=== PATIENT | female | born 1940 | race Caucasian/White ===

== ENCOUNTER 2016-05-16 13:15 | Emergency (ER) | payer MEDICARE, OTHER ==
[~2016-05-16] VITALS: Ht 162.6 cm; Wt 98.2 kg
[~2016-05-16 13:15] MED LIST: ACET650T46 PO; CRES20T PO; DILT120T10 PO; GABA-502 PO; HYDR25TA4 PO; LEVO75TA4 PO; LOSA25TA21 PO; MULT-1018 PO; WARF2.5T82 PO; WARF5TAB7 PO
--- NOTE | 2016-05-16 13:18 | ED.REPORT ---
HPI-Extremity Problem Lower Date of Service May 16, 2016 ED Provider: Dayton Denson Patient is a 75 year old female on Warfarin who presents to the ED via EMS complaining of a R hip dislocation without a mechanism of injury. She was sitting down, putting lotion on her legs when she internally rotated her knee too far and felt her hip dislocate. She denies numbness, neck pain, fever, or any other symptoms. She has had similar symptoms previously and they were unable to put her hip back in place in the ED. She last ate at 0900 this morning. Nursing Notes Stated Complaint: HIP DISLOCATION Nursing Notes Reviewed: Yes Allergies: Coded Allergies: TAPE (Verified Allergy, Mild, BLISTERING, 05/16/16) amoxicillin (Verified Allergy, Unknown, 05/16/16) atorvastatin (Verified Allergy, Unknown, 05/16/16) potassium (Verified Allergy, Unknown, 05/16/16) amoxicillin trihydrate (Verified Adverse Reaction, Severe, N&V, 08/28/15) atorvastatin calcium (Verified Adverse Reaction, Severe, MYALGIA, 08/28/15) Scheduled Diltiazem (Cardizem) 120 Mg Tablet 240 MG PO HS Gabapentin (Gabapentin) 300 Mg Capsule 300 MG PO DAILY Hydrochlorothiazide (Hydrochlorothiazide) 25 Mg Tablet 25 MG PO DAILY Levothyroxine (Levothyroxine) 75 Mcg Tablet 75 MCG PO DAILY Multivitamin (Multi Vitamin Daily) 1 Each Tablet 1 EACH PO DAILY Rosuvastatin Calcium (Crestor) 20 Mg Tablet 20 MG PO DAILY Warfarin Sodium (Warfarin Sodium) 5 Mg Tablet 5 MG PO ,,,,Alexander Warfarin Sodium (Warfarin Sodium) 2.5 Mg Tablet 2.5 MG PO Mon,Fri Scheduled PRN Acetaminophen Extended Release (Tylenol Arthritis Pain Extended-Release) 650 Mg Tablet.er 1 TABLET PO BID PRN PRN For Pain Hydrocodone-Acetaminophen 5-325 mg (Hydrocodone-Acetaminophen 5-325 mg) 1 Each Tablet 1-2 TABLET PO Q4H PRN PRN For Pain Miscellaneous Medications Losartan Potassium (Losartan Potassium) 25 Mg Tablet 25 MG PO General Time Seen by MD: 13:17 Chief Complaint Hip injury right Hx Obtained From: Patient, EMS Arrived By: Ambulance Past Medical History Past Medical History Dislocation of hip Chest Pain (HX MN) Coronary Artery Diseas Edema (PEDAL) Hypertension Irregular Heartbeat Atrial Fibrillation (Chronic) Degenerative Joint Osteoarthritis Reports: Atrial fibrillation Past Surgical History Cardiac Surgery (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 Physical Exam Initial Vital Signs Vital Signs (First) Date Time Temp Pulse Resp B/P Pulse Ox O2 Delivery O2 Flow Rate FiO2 05/16/16 13:22 36.4 78 15 156/66 97 Room Air Initial VS: Reviewed General/Constitutional: Well-developed, Well-nourished Head / Eyes: Atraumatic, Normocephalic Neck: Supple, Full range of motion Respiratory: No respiratory distress Skin: Warm, Dry Neurologic: Alert, Oriented, Nonfocal Psychiatric: Mood/affect normal, Behavior normal, Normal thought content Lower Extremity / Pelvis / MS: Neurologic intact, Vascular intact R hip dislocated with internal rotation Ankle / Foot: Neurologic intact, Vascular intact Dorsalis Pedis pulses intact Interpretation & Diagnostics X-Ray Interpretation Xray Interpretation: IMPRESSION: Arthroplasty dislocation as discussed. No eklutna bone fracture found. Dictated by: Sam Carrillo M.D. on 05/16/2016 at 13:52 Approved by: Sam Carrillo M.D. on 05/16/2016 at 13:53 Study Performed: PELVIS W/LAT HIP (RT) X-Ray Ordered: Pelvis Interpretation / Wet Read by: Interpret - Radiologist Interpretation: Dislocation Xray Interpretation: Dislocation reduced Study Performed: PELVIS W/LAT HIP (RT) X-Ray Ordered: Pelvis Interpretation / Wet Read by: Wet read ED physician Interpretation: No fracture/dislocation Procedures Proced Mod Sedation/Analgesia Time: 13:44 Procedure Performed by: ED physician Sedation Time: 10 - 15 min Consent / Setup: Informed consent provided, Consent from patient, Time-out performed, Hand hygiene observed, Position supine Indication: Hip reduction Preparation: media monitor applied, Pulse oximeter applied, Constant attendance, IV access established, Eval last meal time, Supplemental oxygen, Procedure explained VS Prior to Procedure: All vital signs normal CVS/Resp Exam: Normal breath sounds, Normal heart sounds Neuro Exam: Alert Sedation: Sedation: Propofol ASA Classification: 1 normal healthy patient Response During Procedure: Handled secretions adeq, Maintained airway well, Sedation appropriate Complications During/After: Oxygen desaturation Reversal: None required Mental Status After Procedure: Alert, Oriented X3, Response to verbal stim, At patient's baseline Post-Procedure: Alert prior to discharge, Ambulatory with assist, Vital signs normal Attestation: I performed procedure, I performed sedation Reduction Post Dislocation Hip Time: 13:44 Procedure Performed by: ED physician Consent / Timeout / Setup: Informed consent provided, Consent from patient, Time-out performed (2299), Oxygen administered, Pulse oximeter applied, media monitor applied, Hand hygiene observed Procedural Sedation/Analgesia: Sedation: Propofol Which Hip and Technique: Right hip, Allis technique Neurovascular: Intact pre-procedure, Intact post-procedure Post-Procedure / Complications: Reduced per examination, Procedure successful, X-ray disloc reduced, Condition improved, Tolerated procedure well, Patient stable Re-Eval/Medical Decision Re-Evaluation/Progress #1: Time of Eval: 13:44 Patient Status: Condition improved Re-Evaluation/Progress Note: R hip reduction performed. Re-Evaluation/Progress #2: Time of Eval: 14:30 Re-Evaluation/Progress Note: Rechecked patient. She is able to ambulate well with a walker. Discussed plan for discharge with precautions to avoid additional dislocations. Patient understands and agrees with plan. All questions addressed at this time. Counseled Regarding: Diagnosis, Need for follow-up, When/why to return to ED Discharge & Departure Impression: Primary Impression: Dislocation of internal right hip prosthesis Encounter type: initial encounter Qualified Code: T84.020A - Dislocation of internal right hip prosthesis, initial encounter Disposition: Home Additional Instructions: Your prosthetic hip was dislocated and has been reduced. It is now back in its proper position. Take careful steps to not dislocated again. Specifically, do not bring your knee past the midline toward the middle while you are bent at the waist. Use hydrocodone as needed for pain for the next one or 2 days. Follow-up with Dr. Abraham if you are not back to normal in a few days. Referrals: Rajan Cope MD (PCP) Scribe Attestation Portions of this note were transcribed by Roland Farfan. IDr. Denson personally performed the history, physical exam and medical decision-making; I reviewed and confirmed the accuracy of the information in the transcribed note. Signed by: Roland Farfan 05/16/16,1500 copies to: Rajan Cope MD; Nile Abraham MD, Kirk H MD May 16, 2016 13:18 ROLAND FARFAN May 16, 2016 13:29
[2016-05-16] MEDS ORDERED: Ondansetron 2 mg/mL 2 mL Inj IVPUSH PRN (13:20)
[2016-05-16] MEDS ORDERED: fentaNYL-PF 50 mCg/mL 2 mL Inj IVPUSH PRN (13:20)
[2016-05-16] MEDS ORDERED: Propofol 10 mg/mL 20 mL Inj IVPUSH ONE (13:20)
[2016-05-16 13:22] VITALS: BP 156/66; PULSE 78; RESP 15; O2SAT 97
--- NOTE | 2016-05-16 13:53 | DRSVH ---
PROCEDURE: X-RAY PELVIS W/LAT HIP (RT) ([id number]) INDICATIONS: dislocation TECHNIQUE: AP pelvis with lateral view(s) of the right hip(s). COMPARISON: [facility], CR, XR PELVIS W LATERAL HIP RT, , 7:25. [facility], CR, XR PELVIS W LATERAL HIP RT, 11/04/2014, 14:33. FINDINGS: Bones: No fractures but there is an arthroplasty dislocation with the femoral head component disloca amee dorsally and superiorly in relationship to the acetabular component. Pelvic ring appears intact. No suspicious bony lesions. Soft tissues: The visualized bowel gas pattern is normal. No suspicious soft tissue calcifications. IMPRESSION: Arthroplasty dislocation as discussed. No cheesh-na bone fracture found. Dictated by: Sam Carrillo M.D. on 05/16/2016 at 13:52 Approved by: Sam Carrillo M.D. on 05/16/2016 at 13:53
[2016-05-16] MEDS ORDERED: HYDR-4003 PO (14:38)
--- NOTE | 2016-05-16 15:01 | DRSVH ---
PROCEDURE: X-RAY PELVIS W/LAT HIP (RT) ([id number]) INDICATIONS: post reduction TECHNIQUE: AP pelvis with lateral view(s) of the right hip(s). COMPARISON: [facility], , XR PELVIS W LATERAL HIP RT, 05/16/2016, 13:31. FINDINGS: Bones: No fractures or dislocations. Pelvic ring appears intact. No suspicious bony lesions. Soft tissues: The visualized bowel gas pattern is normal. No suspicious soft tissue calcifications. IMPRESSION: Successful reduction of arthroplasty dislocation at the right hip. No nasal bone fractu res found. Dictated by: Sam Carrillo M.D. on 05/16/2016 at 14:58 Approved by: Sam Carrillo M.D. on 05/16/2016 at 14:59
[2016-05-16 15:11] VITALS: BP 126/47; PULSE 68; RESP 16; O2SAT 96
== END 2016-05-16 15:02 | disposition home or self-care (01) ==
LOC: EDBD 13:15 → SED 13:15
DX: T84.020A Dislocation of internal right hip prosthesis, initial encounter (principal); X50.1XXA Overexertion from prolonged static or awkward postures, initial encounter; Y92.9 Unspecified place or not applicable; Y93.89 Activity, other specified; Y99.8 Other external cause status; I25.10 Atherosclerotic heart disease of native coronary artery without angina pectoris; I10 Essential (primary) hypertension; I48.2 Chronic atrial fibrillation; Z95.1 Presence of aortocoronary bypass graft; Z96.643 Presence of artificial hip joint, bilateral; Z96.651 Presence of right artificial knee joint; Z87.891 Personal history of nicotine dependence; Z79.01 Long term (current) use of anticoagulants; Z88.0 Allergy status to penicillin; Z88.8 Allergy status to other drugs, medicaments and biological substances
CPT/HCPCS: 27265; 73501; 94799; 96374; 96375; 99152; 99285; J3010

== ENCOUNTER 2016-07-13 10:02 | Observation (INO) | payer MEDICARE, OTHER ==
[~2016-07-13] VITALS: Ht 162.6 cm; Wt 98.0 kg
[2016-07-13] VITALS (7 sets, daily range): BP systolic 140–189; BP diastolic 62–93; PULSE 59–94; RESP 12–20; O2SAT 94–100
[~2016-07-13 10:02] MED LIST changes: +HYDR-4003 PO
--- NOTE | 2016-07-13 10:07 | ED.REPORT ---
HPI-Extremity Problem Lower Date of Service Jul 13, 2016 ED Provider: Nolvia Nicholson MD 75 year old female with a history of bilateral hip replacements, and OA presents to the ER via EMS accompanied by her complaining of right hip pain, concerned for dislocation. 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 Since then she has experienced 8/10 pain, exacerbated with any movement. Patient denies falling, and she has not attempted ambulation. Fentanyl administered en route. Patient has a history of recurrent hip dislocation, most recently May 16, and has had problems with ER relocations in the past with some requiring transfer to OR. Nursing Notes Stated Complaint: HIP DISLOCATION Nursing Notes Reviewed: Yes Allergies: Coded Allergies: TAPE (Verified Allergy, Mild, BLISTERING, 05/16/16) amoxicillin (Verified Allergy, Unknown, 05/16/16) atorvastatin (Verified Allergy, Unknown, 05/16/16) potassium (Verified Allergy, Unknown, 05/16/16) amoxicillin trihydrate (Verified Adverse Reaction, Severe, N&V, 08/28/15) atorvastatin calcium (Verified Adverse Reaction, Severe, MYALGIA, 08/28/15) Scheduled Diltiazem (Cardizem) 120 Mg Tablet 240 MG PO HS Gabapentin (Gabapentin) 300 Mg Capsule 300 MG PO DAILY Hydrochlorothiazide (Hydrochlorothiazide) 25 Mg Tablet 25 MG PO DAILY Levothyroxine (Levothyroxine) 75 Mcg Tablet 75 MCG PO DAILY Multivitamin (Multi Vitamin Daily) 1 Each Tablet 1 EACH PO DAILY Rosuvastatin Calcium (Crestor) 20 Mg Tablet 20 MG PO DAILY Warfarin Sodium (Warfarin Sodium) 5 Mg Tablet 5 MG PO ,,,Sa,Alexander Warfarin Sodium (Warfarin Sodium) 2.5 Mg Tablet 2.5 MG PO Mon,Fri Scheduled PRN Acetaminophen Extended Release (Tylenol Arthritis Pain Extended-Release) 650 Mg Tablet.er 1 TABLET PO BID PRN PRN For Pain Hydrocodone-Acetaminophen 5-325 mg (Hydrocodone-Acetaminophen 5-325 mg) 1 Each Tablet 1-2 TABLET PO Q4H PRN PRN For Pain Miscellaneous Medications Losartan Potassium (Losartan Potassium) 25 Mg Tablet 25 MG PO General Time Seen by MD: 10:04 Chief Complaint Hip injury right Hx Obtained From: Patient Arrived By: Ambulance Onset Occurred: Just prior to arrival Symptom Duration: Since onset Caused by: Accidental Context: Occurred at: Home injury Location: : Hip right Quality: Painful Severity: Current: Pain level 8 out of 10 Severity: Maximum: Pain level 8 out of 10 Pertinent Negative: Pt denies other symptoms Exacerbated by: Movement Pertinent Negative: Relieved by nothing Similar Sx Previous: Yes Past Medical History Past Medical History Dislocation of hip Chest Pain (HX MS) Coronary Artery Diseas Edema (PEDAL) Hypertension Irregular Heartbeat Atrial Fibrillation (Chronic) Degenerative Joint Osteoarthritis Reports: Atrial fibrillation Past Surgical History Cardiac Surgery (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 Physical Exam Initial Vital Signs Vital Signs (First) Date Time Temp Pulse Resp B/P Pulse Ox O2 Delivery O2 Flow Rate FiO2 07/13/16 10:08 37.0 66 16 189/62 99 Room Air 07/13/16 11:40 3 Initial VS: Reviewed General/Constitutional: Well-developed, Well-nourished Head / Eyes: Atraumatic, Normocephalic Neck: Supple, Non-tender, Full range of motion Respiratory: Breath sounds normal, Clear to auscultation, No respiratory distress Upper Extremities: Vascular intact, Neuro intact, No swelling, No tenderness Skin: Warm, Dry, No cyanosis Neurologic: Alert, Oriented, Nonfocal Lower Extremity / Pelvis / MS: Neurologic intact, Vascular intact Right Hip: Positive: Leg shortened, Tenderness present... Right leg internally rotated. Healing bruise on the lateral aspect of the Left upper thigh. Ankle / Foot: Atraumatic, Inspection NL, Full range of motion, No swelling, No erythema, Non-tender, No deformity, Neurologic intact, Vascular intact, No edema Cardiovascular: Heart rate NL, Regular rhythm, Heart sounds NL, No gallop, No murmurs, No rubs Interpretation & Diagnostics Lab Results Interpretation Test 07/13/16 13:45 Hold Urine Received (Received) X-Ray Interpretation Xray Interpretation: IMPRESSION: Posterosuperior right hip dislocation without associated fracture. Dictated by: Elie Bernal M.D. on 07/13/2016 at 9:51 Approved by: Elie Bernal M.D. on 07/13/2016 at 9:52 X-Ray Ordered: Pelvis, Hip right Interpretation / Wet Read by: Interpret - Radiologist Procedures 13:13 Procedure Moderate Sedation Procedure performed by nm Sedation time: 17 min Informed consent provided Consent from patient Time out performed Hand hygiene observed Standard sterile technique Position supine Indication: Hip Reduction media monitor applied Pulse oximeter applied Constant attendance IV access established Evaluated last meal time Supplemental oxygen Procedure explained Suction available End tidal CO2 monitor applied All vital signs normal prior to procedure Mallampati: Class and anatomy 2 tonsils/uvula/palate Normal facial anatomy Normal breath sounds Alert and oriented prior to procedure Sedation: Propofol, 60mg ASA classification: 2 Handled secretions adequately Maintained airway well Oxygenation stable Sedation appropriate Vital signs stable No reversal required Alert and oriented x3, responsive to verbal stimulation after procedure Returned to baseline Vital signs normal Ambulatory with assistance I performed the sedation. Proced Mod Sedation/Analgesia 11:21 First attempt: 60mg Propofol. 11:45 Second attempt: 40mg + 20mg + 20mg Propofol. Time: 11:21 Procedure Performed by: ED physician Sedation Time: 16 - 30 min (24 minutes) Consent / Setup: Informed consent provided, Consent from patient, Time-out performed, Hand hygiene observed, Stand sterile technique, Position supine Indication: Hip reduction Preparation: media monitor applied, Pulse oximeter applied, Constant attendance, IV access established, Eval last meal time, Supplemental oxygen, Procedure explained, Suction available, End tidal CO2 mon applied VS Prior to Procedure: All vital signs normal Mallampati: Class & Anatomy: 1 tonsils/uvula/s palate Airway Exam: Normal facial anatomy CVS/Resp Exam: Normal breath sounds Neuro Exam: Alert Sedation: Sedation: Propofol ASA Classification: 1 normal healthy patient Response During Procedure: Handled secretions adeq, Maintained airway well, Oxygenation stable, Sedation appropriate, Vital signs stable Complications During/After: None Reversal: None required Mental Status After Procedure: Alert, Oriented X3, Response to verbal stim Post-Procedure: Alert prior to discharge, Ambulatory with assist, Pt rtn pre- proc baseline, Vital signs normal Attestation: I performed procedure, I performed sedation Reduction Post Dislocation Hip 11:21 First attempt: Patient sedated with 60mg Propofol. Procedure unsuccessful, per x-ray dislocation not reduced. Dr Nicholson 11:45 Second attempt: Patient sedated with 40mg + 20mg + 20mg Propofol. Procedure unsuccessful, per x-ray dislocation not reduced. Dr Nicholson 13:[address] Marrufo, Orthopedic. Patient sedated with 60mg Propofol. Procedure successful per examination, confirmed reduction by x-ray. Time: : Procedure Performed by: ED physician Consent / Timeout / Setup: Informed consent provided, Consent from patient, Time-out performed, Oxygen administered, Pulse oximeter applied, media monitor applied, Hand hygiene observed, Stand sterile technique Procedural Sedation/Analgesia: Sedation: Propofol Which Hip and Technique: Right hip Neurovascular: Intact pre-procedure, Intact post-procedure Post-Procedure / Complications: Reduced per examination, Procedure successful, X-ray disloc reduced, Hip immobilized, Condition improved, Tolerated procedure well, Patient stable Splint Application - Fx Mgt Time: :29 Procedure Performed by: ED physician, English Adjunct Faculty Precise Anatomic Location: Right Hip Long leg knee immobilizer Definitive Fracture Care: Splint Post-Procedure / Complications: Cap refill normal, Post splint vascular nl, Post splint neuro nl, Condition improved, Tolerated procedure well, Patient stable Splint Post-Application Eval Extremity Condition: Cap refill < 2 sec, Distal sensation intact, Distal motor Intact, No compartment syndrome Re-Eval/Medical Decision Med Decision/Clinical Course Recurrent dislocation right prosthetic hip. It was simply bending over this morning when the hip initially dislocated. With each initial attempt on my part clinically it felt that the hip did relocate and as soon as the leg was lowered down, dislocated again. On the third attempt I provided sedation and Dr. Marrufo did the reduction. After the reduction, he kept the leg abducted and we used padding between her thighs to keep the legs abducted. She will need a special brace and [facility] Will need hospital admission so that she can stay in an abducted position with no more than 70 degrees of hip flexion Source of Hx: Old records Re-Evaluation/Progress #1: Time of Eval: : Re-Evaluation/Progress Note: Performed hip relocation. Discussed imaging results and plan to discharge. Patient is amenable to the plan. Return precautions given. All other questions addressed. Re-Evaluation/Progress #2: Time of Eval: 13:09 Re-Evaluation/Progress Note: Dr. Marrufo, Orthopedics, is present at bedside to assist with hip reduction. Re-Evaluation/Progress #3: Time of Eval: 13:27 Re-Evaluation/Progress Note: Hip reduction successful. Discussed imaging results and need for admission. Patient and spouse are amenable to the plan. All other questions addressed. Consultation #1: Referral / Consult Name: Nomi Marrufo DO Consulted With: Orthopedic Call Returned at: 12:01 Hog Feeder: Will see patient Consultation #2: Referral / Consult Name: Nomi Marrufo DO Consulted With: Orthopedic Call Returned at: 13:26 Hog Feeder: Agrees with eval, Agrees with plan, Accepts admit Note: Recommends admission for observation. Counseled Regarding: Diagnosis, Need for follow-up, When/why to return to ED Discharge & Departure Impression: Primary Impression: Dislocation of internal right hip prosthesis Disposition: ADMITTED TO HOSPITAL Discharge Condition All VS Reviewed: Yes Condition: Stable Referrals: Rajan Cope MD (PCP) Scribe Attestation Portions of this note were transcribed by Dick Escobar. I, Dr. Nicholson, personally performed the history, physical exam and medical decision-making; I reviewed and confirmed the accuracy of the information in the transcribed note. Signed by: Sid Coyne, 07/13/2016 at 15:10 copies to: Rajan Cope MD; Nomi Marrufo Shawna L MD Jul 13, 2016 10:07 DICK ESCOBAR Jul 13, 2016 10:21
[2016-07-13] MEDS ORDERED: Propofol 10 mg/mL 20 mL Inj IVPUSH ONE ×2 (10:20→13:15)
[2016-07-13] MEDS ORDERED: HYDROmorphone 1 mg/mL Inj IVPUSH ONE (10:20)
[2016-07-13] MEDS ORDERED: Ondansetron 2 mg/mL 2 mL Inj IVPUSH ONE (10:20)
[2016-07-13] MEDS ORDERED: HYDROmorphone 0.5 mg/0.5 mL iSecure Syringe IVPUSH PRN (10:20)
--- NOTE | 2016-07-13 10:57 | DRSVH ---
PROCEDURE: X-RAY PELVIS W/LAT HIP (RT) ([id number]) INDICATIONS: dislocated hip TECHNIQUE: AP pelvis with lateral view(s) of the right hip(s). COMPARISON: [facility], CT, CT ABD PELVIS W CON ENTEROGRPH, 06/16/2016, 11:24. FINDINGS: Bones: Postoperative changes are present related to bilateral hip arthroplasties. The right femoral prosthetic component is dislocated posteriorly and superiorly with respect to the acetabular componen t. No fractures are evident. Degenerative changes of the lumbosacral spine and pubis symphysis are noted. Soft tissues: The visualized bowel gas pattern is normal. No suspicious soft tissue calcifications. IMPRESSION: Posterosuperior right hip dislocation without associated fracture. Dictated by: Elie Bernal M.D. on 07/13/2016 at 9:51 Approved by: Elie Bernal M.D. on 07/13/2016 at 9:52
--- NOTE | 2016-07-13 12:20 | DRSVH ---
PROCEDURE: X-RAY RIGHT HIP, ONE VIEW ([id number]) INDICATIONS: reduced hip TECHNIQUE: 1 views of the hip were acquired. COMPARISON: [facility], CR, XR PELVIS W LATERAL HIP RT, 07/13/2016, 10:31. [facility], CR, XR HIP 1VW RT, 07/13/2016, 11:29. [facility], CR, XR HIP 1VW RT, 11/05/2014 , 10:44. FINDINGS: Bones: Right hip arthroplasty is present. As previously identified, there is a posterior superior dis location of the femoral prosthetic component with respect to the acetabular component. There is no ap preciable interval change. Heterotopic ossifications are present along the region of the greater troc hanter, chronic. Soft tissues: No suspicious soft tissue calcifications or masses. IMPRESSION: Unchanged appearance of right hip dislocation. Dictated by: Venita Boss M.D. on 07/13/2016 at 12:17 Approved by: Venita Boss M.D. on 07/13/2016 at 12:19
--- NOTE | 2016-07-13 12:22 | DRSVH ---
PROCEDURE: X-RAY RIGHT HIP, ONE VIEW ([id number]) INDICATIONS: ATTEMPTED RIGHT HIP REDUCTION IN ER TECHNIQUE: 1 views of the hip were acquired. COMPARISON: [facility], CR, XR PELVIS W LATERAL HIP RT, 07/13/2016, 10:31. [facility], CR, XR HIP 1VW RT, 11/05/2014, 10:44. FINDINGS: Bones: There is a persistent appearance of posterior superior right hip dislocation in regards to the femoral and acetabular components. Overall appearance has not significantly changed compared to prio r exam based on single view provided. No visualized fracture. Soft tissues: No suspicious soft tissue calcifications or masses. IMPRESSION: Persistent right hip dislocation without appreciable interval change. Dictated by: Venita Boss M.D. on 07/13/2016 at 12:19 Approved by: Venita Boss M.D. on 07/13/2016 at 12:20
--- NOTE | 2016-07-13 13:03 | DRSVH ---
PROCEDURE: X-RAY RIGHT HIP, ONE VIEW ([id number]) INDICATIONS: ATTEMPTED RIGHT HIP REDUCTION IN ER TECHNIQUE: 1 views of the hip were acquired. COMPARISON: [facility], CR, XR HIP 1VW RT, 07/13/2016, 11:29. [facility], CR , XR HIP 1VW RT, 11/05/2014, 10:44. FINDINGS: Bones: Single view demonstrate persistent dislocation of the right hip arthroplasty. There appears to be a slight more appearance of posterior angulation of the femoral component in relation to the acet abular component. However, this could be projectional on a single view examination. Soft tissues: No suspicious soft tissue calcifications or masses. IMPRESSION: Persistent right hip dislocation with questionable slightly more pronounced posterior ang ulation as described above. Dictated by: Venita Boss M.D. on 07/13/2016 at 13:00 Approved by: Venita Boss M.D. on 07/13/2016 at 13:01
[2016-07-13] MEDS ORDERED: Alum-Mag Hydrox-Simeth 30 mL Suspension PO PRN (15:25)
[2016-07-13] MEDS ORDERED: Ondansetron 2 mg/mL 2 mL Inj IVPUSH PRN (15:25)
[2016-07-13] MEDS ORDERED: CHOL378P PO (15:51)
[2016-07-13] MEDS ORDERED: DILT240T PO (15:51)
[2016-07-13] MEDS ORDERED: ROSU40TA PO (15:51)
[2016-07-13] MEDS ORDERED: ACET-171 PO (15:51)
[2016-07-13] MEDS ORDERED: DULO30CA50 PO (15:51)
--- NOTE | 2016-07-13 16:32 | HP ---
[address] [address] HISTORY AND PHYSICAL PATIENT: DARRIN DAN : 1940 MR#: [id number] ADMIT: 07/13/2016 JOB ID: [id number] DATE: 07/13/2016 CHIEF COMPLAINT: Right hip pain. HISTORY OF PRESENT ILLNESS: The patient is a 75-year-old female, who underwent a right total [place] [address] Fowler. She did well initially but has had five dislocation episodes, most recently one month ago. She states that she was simply bending over and her hip dislocated, causing onset of severe pain and she was unable to ambulate after the incident. She was brought to the emergency department and had a relocation attempted, however, the emergency physician felt that it relocated but then dislocated again when the leg was brought back to midline. PAST MEDICAL HISTORY: Significant for hypertension and atrial fibrillation for which she takes Coumadin. Allergies are multiple; see chart. PHYSICAL EXAMINATION: Vital signs: Blood pressure 189/62, pulse rate 66, respirations 16, temperature 37.0. She is alert and cooperative, in some distress secondary to her right hip pain. Her right lower extremity is shortened and internally rotated with limited range of motion. She has a well-healed posterior approach surgical incision with no redness or erythema. She is able move her toes. Dorsalis pedis pulses +2. X-rays demonstrate a right posterior hip total hip arthroplasty dislocation. ASSESSMENT: Right posterior dislocation total hip arthroplasty. PLAN: We discussed treatment options, and I recommended closed reduction under some increased sedation and then recommend the patient be placed into an abduction pillow and have a hip abduction orthosis placed by the wax molder, limiting hip flexion to 0-70 degrees and abduction being held at 20 degrees for a period of six weeks. PROCEDURE: Informed consent was obtained and a time-out was performed under IV sedation. The right hip was reduced with a combination of flexion, internal rotation while counterpressure was applied. The hip reduced fairly easily and then I held it in an abducted position, placed a pillow and awaited the patient to awaken. She tolerated the procedure well. We will have her admitted to the hospital for observation and placement of her hip abduction orthosis and then work with physical therapy on gait training.
--- NOTE | 2016-07-13 18:20 | NUR ---
Admission Assumed care. Admission completed. [facility] arrived and fitted patient with hip abductor. recommended that they be called to make adjustments when patient off bedrest. number is on the front of patient's chart. patient controlled, reports feeling comfortable.
--- NOTE | 2016-07-13 20:02 | NUR ---
Case Management: JANICE explained to patient and spouse at 1948, all questions answered. Signed original placed in chart, copy given to patient. They declined the Medicare Part D Drug information. They also requested to speak with the IRRIGATION ENGINEER tomorrow to assist them with possible Home Health Care, voice message left with IRRIGATION ENGINEER. Toma Jane RN
[2016-07-13] MEDS ORDERED: Diltiazem CD 240 mg ER24 Capsule PO SCH (21:00)
[2016-07-13 21:41] LABS: APPEARANCE,URINE CLEAR (CLEAR,HAZY); COLOR,URINE STRAW (YELLOW); OCCULT BLOOD,URINE TRACE (NEGATIVE); PH,URINE 5.5 (5.0-8.0); UROBILINOGEN,URINE NORMAL (NORMAL)
[2016-07-14 01:51] VITALS: BP 153/71; PULSE 78; RESP 18; O2SAT 97
--- NOTE | 2016-07-14 03:40 | NUR ---
activity pt has been resting comfortably this shift. she has no complaints of pain. her hip abduction orthosis has remained in place. CMS to RLE intact. care continues.
[2016-07-14 05:44] VITALS: BP 144/66; PULSE 62; RESP 18; O2SAT 95
[2016-07-14] MEDS ORDERED: DULoxetine 30 mg DR Capsule PO SCH (08:30)
--- NOTE | 2016-07-14 08:52 | PCM.PNORTH ---
Subjective Date of Service: Jul 14, 2016 Visit Information: Reason for Visit Recurrent Right Hip Dislocation Unstable Surgery/Surgery Date Closed reduction right hip 07/13/2016 Post-Op Day # 1 Date of Admission: Jul 13, 2016 at 14:47 Hospital Day # Subjective She has been fitted for the hip abduction brace. She feels it is rubbing on the thigh lateral side. No pain. She has not been out of bed yet. Postop General: No Shortness of Breath, No Chest Pain, Good Appetite Objective Exam Objective Patient is seen sitting up in bed. ABduction brace is in place. There is exposed velcro under the lateral thigh which has cloth placed under it to protect the skin Vital Signs and I/O Vital Sign - Last Date Time Temp Pulse Resp B/P Pulse Ox O2 Delivery O2 Flow Rate FiO2 07/14/16 05:44 36.9 62 18 144/66 95 Room Air 07/13/16 14:00 4 Intake and Output 07/13/16 07/13/16 07/14/16 Cumulative From/Thru 15:00 23:00 07:00 07/13/16 10:08 - 07/14/16 05:44 Intake Total 700 ml 650 ml 1350 ml Output Total 900 ml 1800 ml 2700 ml Balance -200 ml -1150 ml -1350 ml Intake Oral 700 ml 650 ml 1350 ml Output Urine Total 900 ml 1800 ml 2700 ml # Bowel Movements 0 0 Lab & Micro Results Laboratory Tests Test 07/13/16 13:45 Urine Color Straw (YELLOW) Urine Appearance Clear (CLEAR,HAZY) Urine pH 5.5 (5.0-8.0) Urine Specific [place] 1.025 (1.003-1.035) Urine Protein 30mg/dL (NEG,TRACE) Urine Glucose (UA) Negativemg/dL (NEGATIVE) Urine Ketones Negativemg/dL (NEGATIVE) Urine Occult Blood Trace (NEGATIVE) Urine Nitrite Negative (NEGATIVE) Urine Bilirubin Negative (NEGATIVE) Urine Urobilinogen Normalmg/dL (NORMAL) Urine Leukocyte Esterase Negative (NEGATIVE) Urine RBC 0-2/hpf (0-2) Urine WBC 0-5/hpf (0-5) Urine Epithelial Cells None/hpf (NONE-MOD) Urine Crystals None seen (NONE SEEN) Urine Bacteria Few/hpf (NONE-FEW) Urine Hyaline Casts None/lpf (NONE) Urine Granular Casts None seen (NONE SEEN) Urine Waxy Casts None seen (NONE SEEN) Urine Red Blood Cell Casts None seen (NONE SEEN) Urine White Blood Cell Casts None seen (NONE SEEN) Urine Mucus None seen (None Seen) Urine Trichomonas None seen (NONE SEEN) Urine Yeast None (NONE SEEN) Urinalysis Comment None Urine Culture Reflexed Not indicated Hold Urine Received (Received) General Appearance: Alert, Oriented X3, Cooperative, No Acute Distress Extremities: Distal Pulses Palpable, No Compartment Syndrom Noted, Thigh & Calf Soft/Nontender Postop Sensory Motor: Distal Motor Intact, NVI Distally Assessment & Plan Impression status post right hip closed reduction Problems: Plan Weight bearing as tolerated Wear the brace at all times except to shower. Call [facility] to adjust the brace - cover the velcro at the lateral thigh PT this morning to review hip precautions, transfers, ambulation May DC home after PT and brace is adjusted Wear the brace for 6 weeks Follow up with Dr. Abraham or Dr. Marrufo in 6 weeks Resuscitation Status: CPR: Attempt Resuscitation Soddy-DaisyMatilda garcia PA-C Jul 14, 2016 08:52
--- NOTE | 2016-07-14 09:01 | PCM.DIOPOR ---
OP Ortho Discharge Instruction Dates of Hospitalization Date of Discharge: Jul 14, 2016 Providers Admitting Physician: Nomi Marrufo DO Primary Care Physician: Rajan Cope MD Attending Physician: Nomi Marrufo DO Diagnosis at Time of Discharge Post operative diagnosis Closed reduction right hip Diet Discharge Diet: No restrictions Activity Activity-General: Balance rest and activity Discharge Assist Device: Other (Hip spica brace) Dressing and Incisional Care Hygiene: May shower (with brace off. No twisting , bending forward when out of the brace) Additional Instructions Discharge Instructions Weight bearing as tolerated. Wear the hip spica brace at all times except to shower Wear the brace for 6 weeks Follow Up Plan Follow Up Plan Follow up with either Dr. Abraham or Dr. Marrufo in 6 weeks Matilda Lord PA-C Jul 14, 2016 09:01
[2016-07-14] MEDS: Cholestyramine Resin Powder 4 Gm Packet PO SCH ×2 (09:20→11:25)
--- NOTE | 2016-07-14 10:58 | NUR ---
Social Work: Initial Assessment Data: EMR reviewed. Pt is a 75 y/o female admitted for recurrent right hip dislocation as per H&P. Insurance is Medicare and [employer]. PCP is Rajan Cope MD. SW met with pt and at bedside to conduct initial assessment. Pt was alert and oriented x3. Pt confirmed the following: Pt lives in a single-story home with in [place]. Pt drives and is independent at baseline. Pt does not have LTC or VA insurance. Pt has history at [facility] for rehabilitation after hip surgery. Pt has no history of HH. SW confirmed that pt has completed DPOA/advanced directive ppw and provided a copy to the hospital. Pt requested HH information for assistance with hip brace and ADL. Pt stated she needed assistance with bathing and would need a walker if discharged with brace. SW will wait to see PT recommendations and then proceed consult with pt regarding HH. SW will continue to follow. Assessment: Pt who is independent at baseline. Plan: Pt will likely need HH. SW will consult with pt about HH after PT evaluation. SW will continue to follow. CHI Lemus
--- NOTE | 2016-07-14 12:43 | NUR ---
Discharge Note Pt denied any pain today, able to work with phys therapy, ambulating in room. Pt able to void after sparks was DC'ed. Pt and pt's verbalized understanding of all discharge instructions. Reviewed Discharge instructions , medications, Brace off for showers, No twisting, bending forward when out of the brace. Weight bearing as tolerated. Wear the hip spica brace at all times except to shower. Wear the brace for 6 weeks. Follow up ivana. Pt ready to discharge home with all belongings accompanied by .
--- NOTE | 2016-07-14 12:54 | NUR ---
Social Work: Discharge Data: Pt is on day 1 of hospitalization. SW met with pt to discuss discharge needs. PT recommended HH. SW provided pt with choice list and pt chose [facility]. Pt requested shower aide and HH. SW will make referral to [facility]. Assessment: Pt who is independent at baseline. Plan: Pt will return home with via POV with [facility] RN.
--- NOTE | 2016-07-14 15:33 | NUR ---
D/A: SW made referral to [facility] for RN/PT/bath aide. SW faxed [facility] and gave access to [facility] to open HH services. SW contacted pt to confirm that [facility] is open and she will receive services. Pt was agreeable to rehabilitation plan outside of the hospital. P: [facility] will provide RN/PT/bath aide services for rehabilitation outside of hospital. CHI Lemus
--- NOTE | 2016-07-20 15:12 | DRSVH ---
PROCEDURE: X-RAY RIGHT HIP, ONE VIEW ([id number]) INDICATIONS: RIGHT HIP PAIN TECHNIQUE: Single frontal view of the hip were acquired. COMPARISON: [facility], CR, XR HIP 1VW RT, 07/13/2016, 11:29. [facility], CR , XR HIP 1VW RT, 11/05/2014, 10:44. FINDINGS: Bones: No fractures or dislocations. No suspicious bony lesions. The visualized pelvic ring appear s intact. Soft tissues: No suspicious soft tissue calcifications or masses. IMPRESSION: Prior right total hip arthroplasty, successful reduction of arthroplasty dislocation. No trauma found. Dictated by: Sam Carrillo M.D. on 07/13/2016 at 14:12 Approved by: Sam Carrillo M.D. on 07/13/2016 at 14:13
--- NOTE | 2016-07-22 08:35 | PCM.DC.ORT ---
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 The hip was originally put in by Dr. Abraham. Patient presented to the emergency room on 424 with a dislocated right hip prosthesis. Dr. Marrufo performed close reduction. The patient was fitted for a hip abduction brace on the morning of postop day 1. Patient was seen by physical therapy and then discharged home in stable condition. Patient is instructed to wear the brace for 6 weeks. She is to wear the brace at all times except for bathing and skin care. Patient will follow up with either Dr. Abraham or Dr. Marrufo in 6 weeks. Diagnosis at Time of Discharge Status post closed reduction right hip Problems: Disposition: Discharged home in stable condition Discharge Instructions: Patient is instructed to wear the brace for 6 weeks. She is to wear the brace at all times except for bathing and skin care. Patient will follow up with either Dr. Abraham or Dr. Marrufo in 6 weeks. Acetaminophen (Acetaminophen) 500 Mg Tablet 500 MG PO Q6H PRN PRN For Pain Cholestyramine/Sugar Powder (Cholestyramine/Sugar Powder) 378 Gm Powder 1 DOSE PO TIDWM Diltiazem ER (Cardizem LA) 240 Mg Tab.er.24h 240 MG PO HS Duloxetine (Duloxetine) 30 Mg Capsule.dr 60 MG PO QAM Gabapentin (Gabapentin) 300 Mg Capsule 300 MG PO HS Hydrochlorothiazide (Hydrochlorothiazide) 25 Mg Tablet 25 MG PO DAILY Levothyroxine (Levothyroxine) 75 Mcg Tablet 75 MCG PO DAILY Losartan Potassium (Losartan Potassium) 25 Mg Tablet 25 MG PO HS Rosuvastatin Calcium (Crestor) 40 Mg Tablet 40 MG PO HS Warfarin Sodium (Warfarin Sodium) 5 Mg Tablet 5 MG PO ,,,Sa Warfarin Sodium (Warfarin Sodium) 2.5 Mg Tablet 2.5 MG PO mon,wed,fri Matilda Lord PA-C July 22, 2016 08:35
== END 2016-07-14 13:15 | disposition home or self-care (01) ==
LOC: SED 10:02 → OSC 14:47
PROVIDERS: ADMIT Orthopaedic Surgery; ATTEND Orthopaedic Surgery
DX: T84.020A Dislocation of internal right hip prosthesis, initial encounter (principal); M25.551 Pain in right hip; I25.10 Atherosclerotic heart disease of native coronary artery without angina pectoris; I10 Essential (primary) hypertension; I48.2 Chronic atrial fibrillation; M16.0 Bilateral primary osteoarthritis of hip; I25.2 Old myocardial infarction; Z95.1 Presence of aortocoronary bypass graft; Z91.048 Other nonmedicinal substance allergy status; Z79.01 Long term (current) use of anticoagulants; Z88.8 Allergy status to other drugs, medicaments and biological substances; Z96.643 Presence of artificial hip joint, bilateral; Z87.891 Personal history of nicotine dependence
CPT/HCPCS: 27265; 27266; 51702; 73501; 81000; 94799; 96374; 96375; 96376; 97162; 99152; 99285; G0378; J1170; J2405

== ENCOUNTER 2016-10-13 11:47 | Inpatient (IN) | payer MEDICARE, OTHER ==
[2016-10-13] VITALS (17 sets, daily range): BP systolic 132–159; BP diastolic 46–74; PULSE 58–69; RESP 15–20; O2SAT 94–99
[~2016-10-13] VITALS: Ht 162.6 cm; Wt 99.4 kg
[2016-10-13] MEDS: Lactated Ringer's 1,000 ML IV SCH ×4 (05:00→18:28)
[~2016-10-13 11:47] MED LIST changes: -ACET650T46 PO; +Bupivacaine Liposome 1.3% 20 mL Inj INFILTRATE SCH; -CRES20T PO; +CeFAZolin 2 Gm/50 mL D5W IV Premix IV ONE; -DILT120T10 PO; +DILT240C85 PO; +DULO30CA50 PO; +Dexamethasone 4 mg/mL Inj IVPUSH PRN; +EPHEDrine Sulfate 50 mg/mL Inj IVPUSH PRN; -HYDR-4003 PO; +HYDROmorphone 1 mg/mL Inj IVPUSH PRN; -LEVO75TA4 PO; +Labetalol 5 mg/mL 4 mL Inj IV PRN; +Lactated Ringer's 1,000 ML IV SCH; +Lactated Ringer's 500 ML IV PRN; +MetoCLOpramide 5 mg/mL 2 mL Inj IVPUSH PRN; +Ondansetron 2 mg/mL 2 mL Inj IVPUSH PRN; +Phenylephrine 10,000 mCg/mL Inj IVPUSH PRN; +QUE9 PO; +ROSU40TA PO; +SYN75 PO; +Vancomycin Inj 1,500 MG in 0.9% Sodium Chloride 500 ML IV ONE; -WARF2.5T82 PO; +WARF5TAB PO; +fentaNYL-PF 50 mCg/mL 2 mL Inj IVPUSH PRN; +hydrALAZINE 20 mg/mL Inj IVPUSH PRN
[2016-10-13] MEDS ORDERED: CeFAZolin 2 Gm/50 mL D5W Duplex Bag IV ONE (12:35)
[2016-10-13] MEDS ORDERED: Vancomycin 1,000mg/200 mL NS IV ONE (12:36)
[2016-10-13 13:47] LABS: INR 0.95 ratio
--- NOTE | 2016-10-13 15:03 | PCM.HPANE ---
Patient Data Date of Service: Oct 13, 2016 Surgeon Admitting Provider: Attending Provider:Nomi Marrufo DO Primary Care Physician:Rajan Cope MD Other Provider:Jeanette Lancaster Anesthesia Reason for Visit Intability Of Right Hip Joint Ht/WT & BMI Height (Feet): 5 Height (Inches): 4 Weight (Kilograms): 99.4 Body Mass Index 37.00 Allergies Coded Allergies: TAPE (Verified Allergy, Mild, BLISTERING, 10/13/16) amoxicillin (Verified Allergy, Unknown, nausea/vomiting, 10/13/16) atorvastatin (Verified Allergy, Unknown, muscle aches, 10/13/16) amoxicillin trihydrate (Verified Adverse Reaction, Severe, N&V, 10/13/16) atorvastatin calcium (Verified Adverse Reaction, Severe, MYALGIA, 10/13/16) Past Anesthesia History Anesthesia History: Denies:: Abnormal Airway, Anesthesia Reactions, Difficult Intubation, Fam Anesthesia Reaction, Fam Malignant Hypertherm, Malignant Hyperthermia Diabetes History Hx Diabetes?: No MRSA MRSA: No Medications Blood Thinner: Coumadin Hypertension Medication: Yes Home Meds Incl Beta Ema: No Reported Medications Levothyroxine (Synthroid)75 Mcg Getazm62 Mcg PO DAILY Ref 0 10/06/16 Multivitamin (Multi Vitamin Daily)1 Each Tablet1 Each PO DAILY 30 Days Ref 0 10/06/16 Losartan Potassium 25 Mg Ssewqq69 Mg PO DAILY 10/06/16 Hydrochlorothiazide 25 Mg Syrbdr06 Mg PO DAILY 30 Days Ref 0 10/06/16 Gabapentin 300 Mg Bqbwvcb925-322 Mg PO HS Ref 0 10/06/16 Duloxetine 30 Mg Capsule.dr60 Mg PO DAILY Ref 0 10/06/16 Rosuvastatin Calcium (Crestor)40 Mg Tiznkt94 Mg PO DAILY 30 Days Ref 0 10/06/16 Warfarin Sodium 5 Mg Tablet2.5 Mg PO mon,wed,wed 30 Days Ref 0 10/06/16 Warfarin Sodium (Coumadin)5 Mg Tablet5 Mg PO 4xweekly 30 Days Ref 0 10/06/16 Cholestyramine (Cholestyramine Packet)4 Gm Packet4 Gm PO DAILY Ref 0 10/06/16 Diltiazem ER (Cardizem CD)240 Mg Cap.er.01k988 Mg PO DAILY Ref 0 10/06/16 Discontinued Reported Medications Acetaminophen 500 Mg Uwsczf778 Mg PO Q6H PRN For Pain 07/13/16 Duloxetine 30 Mg Capsule.dr60 Mg PO QAM #180 07/13/16 Rosuvastatin Calcium (Crestor)40 Mg Qgxmrh70 Mg PO HS #90 07/13/16 Cholestyramine/Sugar Powder 378 Gm Powder1 Dose PO TIDWM #1134 07/13/16 Diltiazem ER (Cardizem LA)240 Mg Tab.er.20w932 Mg PO HS #90 07/13/16 Warfarin Sodium 2.5 Mg Tablet2.5 Mg PO mon,wed,wed Ref 0 11/04/14 Warfarin Sodium 5 Mg Tablet5 Mg PO ,,,Sa Ref 0 11/04/14 Levothyroxine 75 Mcg Xdlhcj89 Mcg PO DAILY Ref 0 11/04/14 Gabapentin 300 Mg Aofdkqr949 Mg PO HS Ref 0 11/04/14 Hydrochlorothiazide 25 Mg Hchffj42 Mg PO DAILY 30 Days Ref 0 11/04/14 Losartan Potassium 25 Mg Splvqm81 Mg PO HS 11/04/14 History History of ENT Problems?: Yes HEENT History: Positive for:: Cataracts (both eyes) Denies:: Abnormal Airway Difficult Intubation Dysphagia Hearing Problem Sinus Problem TMJ Denture Type: None Teeth Condition: Within Normal Limits Hx of Heart Problems?: Yes Cardiovascular History: Positive for:: Atrial Fibrillation Cardiac Surgery (CABG 1997, 4 vessel) Chest Pain (1997 with subsequent CABG) Edema (occasional ankle swelling) Heart Murmur Hypertension Irregular Heartbeat (Afib) Denies:: AICD Abdominal Aortic Aneurism Congestive Heart Failure Pacemaker Rheumatic Fever Thrombophlebitis Valvular Heart Disease Hx of Respiratory Problem?: Yes Respiratory History: Positive for:: Chest Surgery (CABG 1997) Use of C-PAP Machine Denies:: Asthma COPD Cough Dyspnea Emphysema Hemoptysis Oxygen Administration Pneumonia Pulmonary Embolism Tuberculosis Use of Inhalers / NEBS Hx Neurologic Problems?: Yes Neurological History: Positive for:: Dizziness (vertigo at times) Denies:: Alzheimer's Disease CVA Dementia Headaches Multiple Sclerosis Parkinson's Disease Seizures Hx of GI Problems?: Yes Hx of Problems?: Yes Genitourinary History: Denies:: HX of Hemodialysis Kidney Stones Urinary Tract Infection (past hx of ) HX of Peritoneal Dialysis: No Female Hx: Positive for:: Endometriosis Denies:: Currently (post menopausal ) Pelvic Inflammatory Problems with Breasts? Skin History: Denies:: History Skin Disorders? Pressure Ulcers Hx Musculoskeletal Problems?: Yes Musculoskeletal History: Positive for:: Back Injury (spinal stenosis cervical fusion hx) Degenerative Joint Fibromyalgia Joint Replacement (bilat knees and bilat hips) Musculoskeletal Trauma (right hip current admission problem) Osteoarthritis Denies:: Systemic Lupus Hx of Psycho/Social Problems?: Yes Psycho Social History: Positive for:: Anxiety Hx Depression Suicide Attempt (1957) Denies:: Bipolar Disorder Hx Surgeries?: Yes (bilat knee, hips, neck surgeries, tonsilectomy, right wrist ) Hx Any Other Health Problems?: Yes Other History: Positive for:: Hospitalization (orthopedic surgeries) Thyroid Disease (hypothyroid) Denies:: Cancer Endocrine Disease History Blood Transfusions: Positive for:: Accept Blood Products? Denies:: Blood Transfuse Reaction Blood Transfusions Hx Diabetes: No Hx Alcohol Use: YesAlcoholic Drinks Per Day: wine 5-6 drinks weeklyHx Substance Use: No Smoking Status: Former Smoker Have You Smoked inLast 12 mo: No Stop/Bang S-Snoring: Do You Snore Loudly: No T-Tired: feel tired, fatigued: No O-Obsered: Observed not breath: No P-Blood Pressure: treated: Yes B- Body Mass Index > 35 kg/m2: Yes A- Age over 50: Yes N- Neck Large Circumference: No G- Gender Male: No CRISTHIAN Total Score: 3 CRISTHIAN Risk Assessment: Low Risk, <3 Yes Risk Assessment Category Category 1A: Patient has history of documented sleep apnea, and HAS NOT received any narcotic, sedative or anesthesia administration during this stay. Category 1B: Patient has history of documented sleep apnea, and HAS received any narcotic , sedative or anesthesia administration during this stay Category 2: Patient has SUSPECTED Obstructive Sleep Apnea, and HAS received any narcotic , sedative or anesthesia administration during this stay. Category 3: Patient has SUSPECTED Obstructive Sleep Apnea and HAS NOT received narcotic, sedative or anesthesia administration during this stay. Category 4: Outpatient in Procedural Areas with known sleep apnea or who screen positive for High Risk via the STOP/BANG questionnaire. Exam Exam Vital Signs Vital Signs Date Time Temp Pulse Resp B/P Pulse Ox O2 Delivery O2 Flow Rate FiO2 10/13/16 12:20 CPAP/BIPAP 10/13/16 12:12 146/46 10/13/16 12:10 36.4 69 18 99 Room Air General Appearance: Alert, Oriented X3, Cooperative, No Acute Distress HEENT/AIRWAY: MP 3, Neck Movement, Mouth Opening Lungs: Clear to Auscultation, Normal Air Movement Heart: Exam Unremarkable, Regular Rate/Rhythm, No Murmurs/Rubs/Gallops Meds/Labs/Diagnostics Admission Meds Current Medications Lactated Ringer's 1,000 ml @ 120 mls/hr Q8H20M IV Last administered on 12:16; Start 10/13/16 at 05:00; Stop 10/13/16 at 13:19; Status DC Vancomycin HCl/ Sodium Chloride (Vancocin Inj/ Normal Saline) 500 ml @ 333.333 mls/hr ONCE ONCE IV Last administered on 10/13/16 13:06; Start 10/13/16 at 06 :00; Stop 10/13/16 at 07:29; Status DC Labs Test 10/13/16 13:10 Prothrombin Time 10.1sec (8.1-12.5) Prothromb Time International Ratio 0.95ratio Plan Impression Patient chart reviewed, patient interviewed and anesthestic plan with risks, benefits, and alternatives discussed, and informed consent obtained. NPO per Anesth. Guidelines: Yes ASA Physical Status: ASA3 Severe Disease Anesthetic Support Modalities: [place] Scope Anesthetic Plan: GA, SAB Bene/Risks/Altern/Consents: Yes HP Complete Prior to Induction: Yes Tian Palacios MD Oct 13, 2016 15:02
[2016-10-13] MEDS: Tranexamic Acid 100 mg/mL 10 mL Inj ONE ×2 (15:45→17:45)
[2016-10-13 16:46] LABS: APPEARANCE,URINE CLEAR (CLEAR,HAZY); COLOR,URINE STRAW (YELLOW); OCCULT BLOOD,URINE NEGATIVE (NEGATIVE); PH,URINE 5.5 (5.0-8.0); UROBILINOGEN,URINE NORMAL (NORMAL)
[2016-10-13] MEDS ORDERED: Bupivacaine Liposome 1.3% 20 mL Inj INFILTRATE ONE (18:23)
[2016-10-13] MEDS ORDERED: Sodium Chloride LOK Flush 10 mL Syringe IRRIGATION ONE (18:23)
[2016-10-13] MEDS ORDERED: Bupivacaine-MPF 0.5% W/EPI 30 mL Inj INFILTRATE ONE (18:23)
[2016-10-13] MEDS ORDERED: Ondansetron 2 mg/mL 2 mL Inj IVPUSH PRN (18:45)
[2016-10-13] MEDS ORDERED: HYDROmorphone 2 mg/mL Inj IVPUSH PRN (18:45)
[2016-10-13] MEDS ORDERED: Magnesium Hydroxide 10 mL Oral Concentration PO PRN (18:45)
[2016-10-13] MEDS ORDERED: Polyethylene Glycol (PEG) 17 Gm Powder PO PRN (18:45)
[2016-10-13] MEDS ORDERED: Acetaminophen IV 1,000 MG in IV Premix 1 EACH IV PRN (18:45)
[2016-10-13] MEDS ORDERED: hydrOXYzine Pamoate 25 mg Capsule PO PRN (18:45)
[2016-10-13] MEDS ORDERED: diphenhydrAMINE 25 mg Capsule PO PRN (18:45)
--- NOTE | 2016-10-13 19:24 | OP ---
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 PROCEDURE: Right total hip arthroplasty revision. INDICATIONS: The patient is a 75-year-old female with right hip instability after total hip arthroplasty performed in 1999. She had multiple episodes of instability and pain and wished to proceed with a right hip revision. We did an aspiration to rule out infection and discussed treatment options and she wished to proceed with a revision arthroplasty. We discussed risks, benefits, and possible complications of surgery including, but not limited to injury to nerves and vessels, infection, bleeding, incomplete relief of symptoms, stiffness, need for additional procedures, recurrent instability and deep venous thrombosis. The patient had good understanding. All questions were answered and she wished to proceed. A medical surgical tech was required for the successful completion of the procedure. PROCEDURE IN DETAIL: The patient was brought to the operating room. She was given a preoperative antibiotic and 1 g of TXA. Preoperatively, a surgical time-out was performed and the right hip was sterilely prepped and draped. An incision was made centered over the greater trochanter. Using her previous surgical incision to the extent that I could, I then made a perpendicular incision to her previous incision at the superior aspect in order to gain more exposure of the lateral femur. Dissection was carefully carried through subcutaneous tissue. Electrocautery was used for hemostasis. The iliotibial band was re-established as there was quite a bit of scarring about it and then sized. The Charnley retractor was then placed. She had quite a bit of scarring below this as well in the bursa region which was carefully resected. A split was then made in the gluteus medius between the junction of the anterior 1/3 and posterior 2/3, and Hohmann retractors were placed on either side of the femoral neck. An anterior sleeve of tissue was released off of the femur, leaving a cuff of tissue for repair. This was taken to a point just distal to vastus tubercle. A small triangular portion of capsule was removed and then additional capsule was removed in order to gain exposure. I did send some of the capsule for culture, although there was no evidence of any ongoing or active infection. The hip was then dislocated and the femoral head was removed using a femoral head extraction device. The stem appeared well fixed and did not move with manipulation of the head and with removal of the head. I then freed the proximal femur working circumferentially to release capsule and mobilize the femur and then address the acetabulum. The acetabular component appeared to be damaged from the multiple dislocations with the damaged locking ring on the cup and damaged poly superiorly. The poly was removed using an extraction tool and the screws were then removed in the acetabular component. I then used cup extraction tool, placing a trial poly into the acetabulum and then using the blades to work the cup circumferentially, as I felt that the cup had poor positioning which was likely leading to the dislocations. The blades were worked circumferentially around until the cup was freed. The cup was then removed and the remainder of the labrum and soft tissue pulvinar within the acetabulum were removed and the acetabulum was then carefully reamed. I medialized as the previous implant had not been very medialized. I medialized starting with the 53 reamer, reamed my way up to a 57 for a 58 Biomet G7 cup. I placed a trial and felt that it had appropriate position and stability with appropriate abduction and anteversion of about 10-20 degrees, abduction of 40-50 degrees. The acetabulum was washed and then the acetabular component was impacted into position. I elected to use a multihole cup in order to have freedom to chose screw position to avoid previous screw holes. I then further secured the cup with two superior dome screws, both of which had excellent fixation and elected to use a dual mobility construct in order to promote maximum stability. I placed the liner for the dual mobility construct and then impacted this into position. We then trialed the VerSys head using a zero trial first and working our way up to 10.5, which allowed for excellent stability, equal leg lengths and great range of motion with some shuck. I therefore implanted a VerSys 28 mm head with active articulation dual mobility bearing 46, effecting a revision of both components and providing stability to the hip and the patient. The wound was then irrigated and closed with #5 Ethibond to repair the capsule. The gluteus medius was then repaired with #5 Ethibond and #1 Ethibond. The remainder of the gluteus medius and vastus lateralis was repaired with #1 Ethibond. The iliotibial band was repaired with #1 Ethibond and 0-Vicryl in a running fashion. The subcu was closed with 2-0 Vicryl and the skin was closed with a running subcuticular Stratafix suture. A mixture of Marcaine, saline and Exparel was added as an adjunct local anesthetic. Sterile dressings were applied. Patient tolerated the procedure well. BLOOD LOSS: 300 cc POSTOPERATIVE PROTOCOL: Have the patient weightbear to tolerance. Use walker for ambulation and will plan to restart her Coumadin and use Lovenox 40 mg subcu daily while she is in the hospital. ABDOULAYE
[2016-10-13] MEDS ORDERED: Dexamethasone 4 mg/mL Inj ONE (19:53)
[2016-10-13] MEDS ORDERED: Glycopyrrolate 0.2 MG/ML 1mL Inj ONE (19:53)
[2016-10-13] MEDS ORDERED: Phenylephrine/NS 100 mCg/mL 10 mL Syringe IVPUSH ONE (19:53)
[2016-10-13] MEDS ORDERED: Ketamine 10 mg/mL 20 mL Inj ONE (19:53)
[2016-10-13] MEDS ORDERED: Rocuronium 10 mg/mL 5 mL Inj ONE (19:53)
[2016-10-13] MEDS ORDERED: Ondansetron 2 mg/mL 2 mL Inj ONE (19:53)
[2016-10-13] MEDS ORDERED: Propofol 10,000 mCg/mL 20 mL Inj ONE (19:53)
[2016-10-13] MEDS ORDERED: Bupivacaine 0.5% 50 mL Inj ONE (19:53)
[2016-10-13] MEDS ORDERED: Neostigmine 1 mg/mL 10 mL Inj ONE (19:53)
[2016-10-13] MEDS ORDERED: HYDROmorphone 0.5 mg/0.5 mL iSecure Syringe IVPUSH PRN (19:57)
--- NOTE | 2016-10-13 19:58 | PCM.ANEP1 ---
Post Anesthesia PACU Phase 1 Assessment Date of Service: Oct 13, 2016 Vital Signs Vital Signs Date Time Temp Pulse Resp B/P Pulse Ox O2 Delivery O2 Flow Rate FiO2 10/13/16 19:45 63 16 143/55 96 Room Air 10/13/16 19:40 65 16 139/54 95 Room Air 10/13/16 19:35 58 16 138/52 96 Room Air 10/13/16 19:30 59 16 132/62 98 Room Air 10/13/16 19:25 36.1 59 16 142/56 95 Room Air 10/13/16 19:20 60 17 147/63 99 Nasal Cannula 1 10/13/16 19:19 18 99 10/13/16 19:15 61 18 156/62 99 Nasal Cannula 2 10/13/16 19:10 65 15 152/58 99 Nasal Cannula 2 10/13/16 19:05 36.0 60 16 159/66 99 Nasal Cannula 3 10/13/16 12:20 CPAP/BIPAP 10/13/16 12:12 146/46 10/13/16 12:10 36.4 69 18 99 Room Air Anesthetic Administered: GA Level of Alertness: Awake, talking DEMPSEY's with Equal Strength: No Pain: No Nausea or Vomiting: No CV Function & Hydration Stable: Yes Airway Device: Oxygen Delivery: Room Air Lungs: Clear to Auscultation, Normal Air Movement Dermatome Level: Full Sensation PACU Phase 2 Assessment Complications: No Follow up Care: No Patient Instructions Provided: N/A Tian Palacios MD Oct 13, 2016 19:58
--- NOTE | 2016-10-13 20:39 | DRSVH ---
PROCEDURE: X-RAY PELVIS W/LAT HIP (RT) ([id number]) INDICATIONS: post op TECHNIQUE: AP pelvis with lateral view(s) of the right hip(s). COMPARISON: [facility], , XR PELVIS W LATERAL HIP RT, 07/29/2016, 12:58. FINDINGS: Bones: No fractures or dislocations. Pelvic ring appears intact. No suspicious bony lesions. Bilat eral total hip arthroplasties are present. The acetabular component of the right hip has been changed since the previous x-ray. Soft tissues: The visualized bowel gas pattern is normal. No suspicious soft tissue calcifications. IMPRESSION: Right total hip arthroplasty revised. No abnormality seen radiographically. Dictated by: Husam Rendon M.D. on 10/13/2016 at 20:35 Approved by: Husam Rendon M.D. on 10/13/2016 at 20:37
[2016-10-13] MEDS: Senna-Docusate 8.6-50 mg Tablet PO SCH (21:03)
[2016-10-13] MEDS: Diltiazem CD 240 mg ER24 Capsule PO SCH (21:04)
[2016-10-13] MEDS: 0.9% Sodium Chloride 1,000 ML IV SCH (21:06)
[2016-10-13] MEDS: DULoxetine 30 mg DR Capsule PO SCH (21:08)
[2016-10-13] MEDS: CeFAZolin Inj 2 GM in IV Premix 1 EACH IV SCH (23:30)
--- NOTE | 2016-10-13 23:46 | NUR ---
Transfer Patient transferred to unit at 2019, spouse at bedside. Belongings went home with spouse. c/o back pain 12/29 hip pain 10/29 given liquid Tylenol. Aqua K pad ordered for back pain, patient states effective. A&O, able to move extremities, feet cool to touch, and weak pedal pulses. Patient c/o of being cold, given warm blankets. Comfortably sleeping at this time, will continue to monitor.
[2016-10-14 00:20] VITALS: BP 150/64; PULSE 71; RESP 18; O2SAT 97
[2016-10-14] MEDS: Sodium Chloride LOK Flush 10 mL Syringe IV SCH ×4 (00:30→19:56)
[2016-10-14] MEDS: HYDROcodone-APAP 7.5-325 mg Tablet PO PRN ×4 (02:25→19:55)
[2016-10-14 02:58] VITALS: PULSE 90; RESP 18; O2SAT 96
[2016-10-14 04:36] VITALS: BP 150/68; PULSE 91; RESP 16; O2SAT 99
[2016-10-14 05:50] LABS: BASOPHILS % (AUTO) 0.1 % (0-3); EOSINOPHILS % (AUTO) 0.1 % (0-5); MONOCYTES % (AUTO) 3.4 % (4-12); Mean Corpuscular Hemoglobin 28.6 pg (27.0-35.0); Mean Corpuscular Volume 87.7 fL (81-100); NEUTROPHILS % (AUTO) 90.6 % (40-74); Platelet Count 250 bil/L (150-400)
[2016-10-14] MEDS: 0.9% Sodium Chloride 1,000 ML IV SCH ×2 (06:32→14:44)
[2016-10-14] MEDS: CeFAZolin Inj 2 GM in IV Premix 1 EACH IV SCH (06:33)
--- NOTE | 2016-10-14 08:36 | PCM.PNORTH ---
Subjective Date of Service: Oct 14, 2016 Visit Information: Reason for Visit Intability Of Right Hip Joint Surgery/Surgery Date right revision total hip arthroplasty 10/13/2016 Post-Op Day # 1 Date of Admission: Oct 13, 2016 at 19:52 Hospital Day # Subjective Patient reports she had a rough night with the pain and could not sleep until she got her CPAP hooked up. She did well with PT this morning and ambulated in the hallway. She requests Mcfadden be removed. Postop General: No Shortness of Breath, No Chest Pain, Good Appetite Pain Management: PO, IV Push Objective Exam Objective Patient was seen sitting up in a chair Vital Signs and I/O Vital Sign - Last Date Time Temp Pulse Resp B/P Pulse Ox O2 Delivery O2 Flow Rate FiO2 10/14/16 04:36 36.6 91 16 150/68 99 CPAP 10/13/16 20:20 1.00 Intake and Output 10/13/16 10/13/16 10/14/16 Cumulative From/Thru 15:00 23:00 07:00 10/06/16 14:14 - 10/13/16 20:39 Intake Total 1500 ml 900 ml 2400 ml Output Total 300 ml 300 ml Balance 1500 ml 600 ml 2100 ml IV Total 1500 ml 900 ml 2400 ml Estimated Blood Loss 300 ml 300 ml Lab & Micro Results Laboratory Tests Test 10/13/16 13:10 10/13/16 16:29 10/14/16 05:17 Prothrombin Time 10.1sec (8.1-12.5) Prothromb Time International Ratio 0.95ratio Urine Color Straw (YELLOW) Urine Appearance Clear (CLEAR,HAZY) Urine pH 5.5 (5.0-8.0) Urine Specific [place] 1.005 (1.003-1.035) Urine Protein Negativemg/dL (NEG,TRACE) Urine Glucose (UA) Negativemg/dL (NEGATIVE) Urine Ketones Negativemg/dL (NEGATIVE) Urine Occult Blood Negative (NEGATIVE) Urine Nitrite Negative (NEGATIVE) Urine Bilirubin Negative (NEGATIVE) Urine Urobilinogen Normalmg/dL (NORMAL) Urine Leukocyte Esterase Negative (NEGATIVE) Urine RBC 0-2/hpf (0-2) Urine WBC 0-5/hpf (0-5) Urine Epithelial Cells Occasional/hpf (NONE-MOD) Urine Crystals None seen (NONE SEEN) Urine Bacteria Few/hpf (NONE-FEW) Urine Hyaline Casts None/lpf (NONE) Urine Granular Casts None seen (NONE SEEN) Urine Waxy Casts None seen (NONE SEEN) Urine Red Blood Cell Casts None seen (NONE SEEN) Urine White Blood Cell Casts None seen (NONE SEEN) Urine Mucus None seen (None Seen) Urine Trichomonas None seen (NONE SEEN) Urine Yeast None (NONE SEEN) Urinalysis Comment None Urine Culture Reflexed Not indicated White Blood Count 9.9th/mm3 (3.8-10.1) Red Blood Count 4.05mil/mm3 (3.90-5.20) Hemoglobin 11.6g/dL (12.0-15.6) Hematocrit 35.5% (35.0-46.0) Mean Corpuscular Volume 87.7fL (81-100) Mean Corpuscular Hemoglobin 28.6pg (27.0-35.0) Mean Corpuscular Hemoglobin Concent 32.7% (32.0-37.0) Red Cell Distribution Width 12.8% (12.3-15.4) Platelet Count 250bil/L (150-400) Neutrophils (%) (Auto) 90.6% (40-74) Lymphocytes (%) (Auto) 5.5% (14-46) Monocytes (%) (Auto) 3.4% (4-12) Eosinophils (%) (Auto) 0.1% (0-5) Basophils (%) (Auto) 0.1% (0-3) Sodium Level 139mEq/L (134-144) Potassium Level 4.3mEq/L (3.5-5.2) Chloride Level 101mEq/L (97-108) Carbon Dioxide Level 23mmol/L (18-29) Blood Urea Nitrogen 22mg/dL (8-27) Creatinine 0.74mg/dL (0.57-1.00) Estimat Glomerular Filtration Rate 109mL/min (>59) Glucose Level 165mg/dL (60-99) Calcium Level 8.8mg/dL (8.5-10.1) Microbiology 10/13/16 Gram Stain - Final, Resulted 10/13/16 Culture & Sensitivity, Resulted Pending 10/13/16 Anaerobic Culture, Resulted Pending Result Diagram: 10/14/16 0517 10/14/16516 General Appearance: Alert, Oriented X3, Cooperative, No Acute Distress Extremities: Distal Pulses Palpable, No Compartment Syndrom Noted, Thigh & Calf Soft/Nontender Postop Sensory Motor: Distal Motor Intact, Distal Sensation Intact, NVI Distally SURGICAL WOUND : Wound Location/Description Surgical dressing is clean, dry and intact Incision General Appearance: No Direct Observation Activity: Activity per PT Catheters: Urethral 2 Way Mcfadden Assessment & Plan Impression POD #1 right revision total hip arthroplasty Problems: Plan Weightbearing: Weightbearing as tolerated with walker DVT prophylaxis: Lovenox 40 mg subcutaneous to bridge until warfarin is approaching therapeutic level. Warfarin is dosed by pharmacy Physical therapy for transfers, progressive ambulation, therapeutic exercise DC abduction pillow, use regular pillow between knees when in bed Wound care: PA will change dressing on postop day 2 DC Mcfadden today Discharge plan: Discharge home in 1-2 days. Follow-up plan: In 2 weeks at [facility] with PA for wound check and at [address] Marrufo with x-rays Pain Management: [place] 7.5/325, Tylenol IV, Dilaudid IV VTE Prophylaxis: Sub-Q Enoxaparin, Theraputic Anticoag with Warfarin, SCDs Resuscitation Status: CPR: Attempt Resuscitation HalleyMatilda garcia PA-C Oct 14, 2016 08:36
--- NOTE | 2016-10-14 09:03 | NUR ---
Evaluation completed. Please go to "Notes" then click on "Assessments and Notes" (bottom left corner of screen). Then select appropriate discipline tab on top of screen.
[2016-10-14 09:27] VITALS: BP 160/83; PULSE 94; RESP 18; O2SAT 96
[2016-10-14] MEDS: DULoxetine 30 mg DR Capsule PO SCH (09:41)
[2016-10-14] MEDS: Senna-Docusate 8.6-50 mg Tablet PO SCH ×2 (09:42→19:56)
--- NOTE | 2016-10-14 10:25 | NUR ---
Warfarin Pt given one time dose of 5mg Warfarin last night with once daily Lovenox ordered. PT/INR subtherapeutic this morning. Kristal Haywood notified, Pharmacy consulted for dosing of Warfarin. Due to hip surgery being a revision, decision made not to increase Lovenox to BID for hematoma risk. SCD's being worn in bed.
--- NOTE | 2016-10-14 10:58 | NUR ---
Evaluation completed. Please go to "Notes" then click on "Assessments and Notes" (bottom left corner of screen). Then select appropriate discipline tab on top of screen.
[2016-10-14 12:31] LABS: INR 1.05 ratio
[2016-10-14] MEDS: Cholestyramine Resin Powder 4 Gm Packet PO SCH (12:32)
[2016-10-14 12:51] VITALS: BP 119/63; PULSE 87; RESP 18; O2SAT 93
--- NOTE | 2016-10-14 15:15 | PCM.CONPHA ---
Subjective Reason for Pharmacy Consult: Anticoagulation Management Assessment/Plan Assessment/Plan Warfarin Management by Pharmacy Indication: Afib Home Dose: Warfarin 2.5 mg M/W/; 5mg AOD INR Goal: 2-3 Duration: Chronic INR: 1.05 Assessment/Plan -Subtherapeutic INR with doses held for procedure. Therapy was restarted last evening. -Will continue with warfarin 5 mg this evening. -Pharmacy to monitor INR/CBC/signs of bleeding while inpatient. Jalen Herrmann Dwaine Pharm.D. Jam Rao Oct 14, 2016 15:15
--- NOTE | 2016-10-14 17:01 | NUR ---
spiritual care: routine conversational visit with pt and . pt agreeable for eucharistic visit. pt and spouse shared thoughts/reflections about medical "moment", cristina, hopefulness and values.
[2016-10-14 19:23] VITALS: BP 124/61; PULSE 78; RESP 18; O2SAT 98
[2016-10-14] MEDS: Diltiazem CD 240 mg ER24 Capsule PO SCH (19:56)
[2016-10-15 00:29] VITALS: BP 134/75; PULSE 84; RESP 18; O2SAT 96
[2016-10-15] MEDS: 0.9% Sodium Chloride 1,000 ML IV SCH ×3 (00:44→19:58)
--- NOTE | 2016-10-15 00:59 | NUR ---
Pain R hip pain managed with [place] 7.5/325 and vistaril. Pt AOx4. Mcfadden DCd by day shift and pt has voided this shift, monitoring PVR (first was 361). Saline lock. Hip dressing CDI. No SOB or chest pain. BLE edematous per baseline as pt states, pulses weak. Care continues
[2016-10-15 04:18] VITALS: BP 149/81; PULSE 92; RESP 16; O2SAT 97
[2016-10-15 05:24] LABS: BASOPHILS % (AUTO) 0.1 % (0-3); EOSINOPHILS % (AUTO) 0.1 % (0-5); MONOCYTES % (AUTO) 11.3 % (4-12); Mean Corpuscular Hemoglobin 28.7 pg (27.0-35.0); Mean Corpuscular Volume 88.5 fL (81-100); NEUTROPHILS % (AUTO) 77.5 % (40-74); Platelet Count 290 bil/L (150-400)
[2016-10-15 05:33] LABS: INR 1.15 ratio
[2016-10-15] MEDS: DULoxetine 30 mg DR Capsule PO SCH (07:59)
[2016-10-15] MEDS: Senna-Docusate 8.6-50 mg Tablet PO SCH ×2 (08:01→20:09)
[2016-10-15] MEDS: Sodium Chloride LOK Flush 10 mL Syringe IV SCH ×3 (08:02→23:34)
[2016-10-15] MEDS: HYDROcodone-APAP 7.5-325 mg Tablet PO PRN (08:02)
[2016-10-15 08:04] VITALS: BP 140/59; PULSE 88; RESP 16; O2SAT 93
--- NOTE | 2016-10-15 09:46 | PCM.PNORTH ---
Subjective Date of Service: Oct 15, 2016 Visit Information: Reason for Visit Intability Of Right Hip Joint Surgery/Surgery Date Post-Op Day # Date of Admission: Oct 13, 2016 at 19:52 Hospital Day # Subjective Status post day #2 right hip revision arthroplasty. Patient states she is doing well, pain is better controlled today. Is able to move but quite slowly and is very willing to work with physical therapy to progress. Postop General: No Shortness of Breath, No Chest Pain, Good Appetite Pain Management: PO, IV Push Objective Exam Objective Patient is alert and oriented 3. Answering questions appropriately. Patient is sitting up in the bedside chair and not in acute distress today. Dressing is clean dry and intact. Upon dressing change, incision is dry, no discharge from the wound, no erythema. Calf is soft and nontender. Sensation and pulses intact, patient able to wiggle toes. Vital Signs and I/O Vital Sign - Last Date Time Temp Pulse Resp B/P Pulse Ox O2 Delivery O2 Flow Rate FiO2 10/15/16 08:04 36.9 88 16 140/59 93 Room Air 10/13/16 20:20 1.00 Intake and Output 10/14/16 10/14/16 10/15/16 Cumulative From/Thru 15:00 23:00 07:00 10/06/16 14:14 - 10/15/16 05:52 Intake Total 1400 ml 918 ml 150 ml 4868 ml Output Total 400 ml 750 ml 350 ml 1800 ml Balance 1000 ml 168 ml -200 ml 3068 ml Intake Oral 1400 ml 840 ml 150 ml 2390 ml IV Total 78 ml 2478 ml Output Urine Total 400 ml 750 ml 350 ml 1500 ml Estimated Blood Loss 300 ml # Bowel Movements 0 0 0 0 Lab & Micro Results Laboratory Tests Test 10/14/16 11:55 10/15/16 05:06 Prothrombin Time 11.3sec (8.1-12.5) 12.3sec (8.1-12.5) Prothromb Time International Ratio 1.05ratio 1.15ratio White Blood Count 10.1th/mm3 (3.8-10.1) Red Blood Count 3.49mil/mm3 (3.90-5.20) Hemoglobin 10.0g/dL (12.0-15.6) Hematocrit 30.9% (35.0-46.0) Mean Corpuscular Volume 88.5fL (81-100) Mean Corpuscular Hemoglobin 28.7pg (27.0-35.0) Mean Corpuscular Hemoglobin Concent 32.4% (32.0-37.0) Red Cell Distribution Width 13.4% (12.3-15.4) Platelet Count 290bil/L (150-400) Neutrophils (%) (Auto) 77.5% (40-74) Lymphocytes (%) (Auto) 10.7% (14-46) Monocytes (%) (Auto) 11.3% (4-12) Eosinophils (%) (Auto) 0.1% (0-5) Basophils (%) (Auto) 0.1% (0-3) Sodium Level 133mEq/L (134-144) Potassium Level 4.1mEq/L (3.5-5.2) Chloride Level 95mEq/L (97-108) Carbon Dioxide Level 25mmol/L (18-29) Blood Urea Nitrogen 28mg/dL (8-27) Creatinine 0.95mg/dL (0.57-1.00) Estimat Glomerular Filtration Rate 82mL/min (>59) Glucose Level 160mg/dL (60-99) Calcium Level 9.0mg/dL (8.5-10.1) Microbiology 10/13/16 Gram Stain - Final, Resulted 10/13/16 Culture & Sensitivity - Preliminary, Resulted 10/13/16 Anaerobic Culture - Preliminary, Resulted Result Diagram: 10/15/16 0506 10/15/16 0506 SURGICAL WOUND : Incision General Appearance: No Direct Observation Activity: Activity per PT Catheters: Urethral 2 Way Mcfadden Assessment & Plan Impression Patient is status post day #2 right hip revision arthroplasty. No concerns or complaints, doing well just needs to progress more with physical therapy before discharge to home. Problems: Plan Weightbearing: Weightbearing as tolerated with walker DVT prophylaxis: Lovenox 40 mg subcutaneous to bridge until warfarin is approaching therapeutic level. Warfarin is dosed by pharmacy. Anticipate we will send patient home with 3 more injections of Lovenox and follow-up with her INR nurse to check the warfarin levels and discontinue when appropriate. Physical therapy for transfers, progressive ambulation, therapeutic exercise Use regular pillow between knees when in bed Dressing changed today. Discharge plan: Discharge home tomorrow. Follow-up plan: In 2 weeks at [facility] with [facility] for wound check and at [address] Marrufo with x-rays VTE Prophylaxis: Sub-Q Enoxaparin, Theraputic Anticoag with Warfarin, SCDs Resuscitation Status: CPR: Attempt Resuscitation Jasmeet Poole PA-C Oct 15, 2016 09:46
[2016-10-15 12:43] VITALS: BP 127/56; PULSE 66; RESP 18; O2SAT 93
[2016-10-15] MEDS: Cholestyramine Resin Powder 4 Gm Packet PO SCH (12:57)
--- NOTE | 2016-10-15 13:19 | PCM.PHAPRO ---
Progress WARFARIN daily dosing INR: 1.15, HCT 30.9, PLT 290 Today's dose: 5mg Date Oct 14-Oct 15 INR 0.95 1.05 1.15 INR change 0.1 0.1 Warf Dose 5 MG 5 MG 5MG Liz Odell Pharm.D Oct 15, 2016 13:19
--- NOTE | 2016-10-15 14:48 | NUR ---
Social Work- Initial Assessment/ Readiness for Discharge/ Multidisciplinary Rounds Data: See Initial Assessment and Advance Directive Intervention for additional information. Pt discussed in rounds. Pt is POD 2. Pt is not ready for discharge at this time, likely tomorrow. PT has cleared pt for home with outpt PT. No CM orders have been received at this time. Pt is a 75 year old admitted 10/13/16 for instability of right hip joint per H&P. Pt's insurance is [employer]. Pt's PCP is Rajan Cope MD. Pt's readmit risk score is 3. SW met with pt at bedside regarding discharge plan, SW role explained. Pt alert and oriented x3. Pt's capacity for self-care assessed. Pt resides in a home with spouse. Pts is d/c planning contact. Pt is independent with ADLs and self-care. Pt uses no DME at baseline but has a walker and quad cane available for use. Pt has a raised toilet seat at home as well. Pt drives. Pt has history with [facility] and [facility] [employer] services. Pt has history at [facility]. Pt has DPOA on file. Pt reports that her is DPOA. Pt had questions about HH services and she feels that they would be necessary at discharge. SW explained that HH requires medical necessity and an order from the MD, which RN STARS will discuss with provider tomorrow. Pt agreeable. SW provided Discharge planning Checklist and requested that pt contact RN STARS if needs identified. SW provided phone number and plan on whiteboard. Pt to discharge home with to transport via POV, R/O HH services. SW will continue to follow. Assessment: Pt who is independent at baseline. 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 Pt to discharge home with to transport via POV, R/O HH services. SW will continue to follow. CHI Olsen Addendum: 10/15/16 at 1452 by EZEQUIEL SANTANA SS Amended: Links added.
--- NOTE | 2016-10-15 15:13 | NUR ---
POST-OP PROGRESS Hydrocodone 1 tab PO has been adequate for pain control. Patient has been tolerating liquids PO and her diet well. Denies nausea. No emesis noted. Denies SOB. Patient has been ambulating in the room and in the hallway. Tolerated activity well. Voiding without any problems. Dressing was changed by KENNEDI Alamo this morning. Dressing remains CDI.
[2016-10-15 19:24] VITALS: BP 150/72; PULSE 80; RESP 18; O2SAT 98
[2016-10-15] MEDS: Diltiazem CD 240 mg ER24 Capsule PO SCH (20:08)
--- NOTE | 2016-10-16 03:13 | NUR ---
Pain Patient denying offer for pain medications this shift. States she lost a part of time last night r/t some medications she took and is worried about being oversedated again. States pain is tolerable in bed and only goes up a little bit when she stands and walks. Received Neurontin PO for fibromyalgia pain. Patient aware to ask for different pain meds if/when needed. States understanding.
[2016-10-16] MEDS: 0.9% Sodium Chloride 1,000 ML IV SCH ×2 (05:26→16:32)
[2016-10-16 05:45] VITALS: BP_SYST 137; BP_SYST 160; BP_DIAS 72; BP_DIAS 85; PULSE 81; PULSE 84; RESP 20; O2SAT 94; O2SAT 96
[2016-10-16 06:08] LABS: INR 1.25 ratio
--- NOTE | 2016-10-16 07:40 | PCM.PNORTH ---
Subjective Date of Service: Oct 16, 2016 Visit Information: Reason for Visit Intability Of Right Hip Joint Surgery/Surgery Date Post-Op Day # 3 Date of Admission: Oct 13, 2016 at 19:52 Hospital Day # Subjective Patient states she has no concerns today. She says she has her own compression stockings that are knee high that she would like to wear. SHe states she has tried wearing thigh highs in the past and did not tolerate them. Postop General: No Shortness of Breath, No Chest Pain, Good Appetite Pain Management: PO, IV Push Objective Exam Objective Patient laying in bed Vital Signs and I/O Vital Sign - Last Date Time Temp Pulse Resp B/P Pulse Ox O2 Delivery O2 Flow Rate FiO2 10/16/16 05:45 37.1 84 20 137/72 94 Room Air 10/13/16 20:20 1.00 Intake and Output 10/15/16 10/15/16 10/16/16 Cumulative From/Thru 15:00 23:00 07:00 10/06/16 14:14 - 10/16/16 06:08 Intake Total 1120 ml 220 ml 6208 ml Output Total 1050 ml 450 ml 3300 ml Balance 70 ml -230 ml 2908 ml Intake Oral 1120 ml 220 ml 3730 ml IV Total 2478 ml Output Urine Total 1050 ml 450 ml 3000 ml Estimated Blood Loss 300 ml # Bowel Movements 0 0 0 Lab & Micro Results Laboratory Tests Test 10/16/16 05:32 Prothrombin Time 13.4sec (8.1-12.5) Prothromb Time International Ratio 1.25ratio Microbiology 10/13/16 Gram Stain - Final, Resulted 10/13/16 Culture & Sensitivity - Preliminary, Resulted 10/13/16 Anaerobic Culture - Preliminary, Resulted Result Diagram: 10/15/16 0506 10/15/16 0506 General Appearance: Alert, Oriented X3, Cooperative, No Acute Distress Extremities: Distal Pulses Palpable, Warm, No Compartment Syndrom Noted, Tenderness/Swelling Noted, Cyanotic Postop Sensory Motor: Distal Motor Intact, Movement in Toes, Distal Sensation Intact, NVI Distally SURGICAL WOUND : Wound Location/Description Dressings c/d/i Incision General Appearance: No Direct Observation Activity: Activity per PT Assessment & Plan Impression Patient is status post day #3 right hip revision arthroplasty. No concerns or complaints, doing well with PT and cleared to go home Problems: Plan Weightbearing: Weightbearing as tolerated with walker DVT prophylaxis: Continue home dosing of Coumadin Physical therapy for transfers, progressive ambulation, therapeutic exercise Use regular pillow between knees when in bed Wear your knee high compression stockings Discharge plan: Discharge home today Follow-up plan: In 2 weeks at [facility] with PA for wound check and at [address] Marrufo with x-rays VTE Prophylaxis: Theraputic Anticoag with Warfarin, SCDs Resuscitation Status: CPR: Attempt Resuscitation Shruti Page PA-C Oct 16, 2016 07:40
--- NOTE | 2016-10-16 07:42 | PCM.DIORTH ---
Ortho Discharge Instruction Date of Service: Oct 16, 2016 Dates of Hospitalization Date of Hospital Admission Oct 13, 2016 at 19:52 Providers Admitting Physician: Nomi Marrufo DO Primary Care Physician: Rajan Cope MD Attending Physician: Nomi Marrufo DO Activity Discharge Activity-General: Ice incision 3-5 time/day for 20min Right Lower Extremity: Weight Bearing as tolerated Discharge Assist Device: Front Wheeled Walker Dressing and Incisional Care Discharge Hygiene: May shower (When incision is dry and no drainage seen) Additional Instructions Discharge Instructions Weightbearing: Weightbearing as tolerated with walker DVT prophylaxis: Continue home dosing of Coumadin Use regular pillow between knees when in bed Wear your knee high compression stockings Follow-up plan: In 2 weeks at [facility] with CLINT for wound check and at [address] Marrufo with x-rays Shruti Page PA-C Oct 16, 2016 07:42
[2016-10-16] MEDS ORDERED: HYDR-3797 PO (07:43)
[2016-10-16] MEDS ORDERED: Hydrocodone/Acetaminophen PO (07:43)
[2016-10-16] MEDS: DULoxetine 30 mg DR Capsule PO SCH (08:07)
[2016-10-16] MEDS: Senna-Docusate 8.6-50 mg Tablet PO SCH ×2 (08:07→20:14)
[2016-10-16] MEDS: HYDROcodone-APAP 7.5-325 mg Tablet PO PRN (08:17)
[2016-10-16 08:21] VITALS: BP 132/65; PULSE 74; RESP 20; O2SAT 96
--- NOTE | 2016-10-16 10:18 | NUR ---
Social Work: Readiness for Discharge/Multidisciplinary Rounds D: EMR reviewed. Pt is on day 3 of hospitalization. Per MOUSTAPHA notes from 10/15, pt had questions about HH services and felt that they would be necessary at discharge. MOUSTAPHA explained that HH requires medical necessity and an order from the MD. Per PT recommendations, pt cleared for outpt PT (ambulated 120 ft w/assistance of FWW) after successful completion of stairs. Per PT this AM, pt not able to complete stairs. PT requested SW review PT recommendations with Ortho provider prior to pt's discharge. SW placed T/C to Ortho provider to discuss PT recommendations. SW left voicemail requesting determination prior to pt's discharge. SW has not received orders to coordinate HH at this time. SW will await Ortho provider orders to proceed with coordinating HH. SW will continue to follow. Pt to discharge home with to transport via POV, R/O HH services - awaiting Ortho provider T/C or orders. SW left message regarding PT recommendations. Pt aware the HH can only be ordered if Ortho provider deems HH a medical necessity at this time. SW will await to hear back from Ortho provider. A: Pt who is independent at baseline. P: SW will await T/C or orders from Ortho provider to coordinate HH. SW left voicemail with provider requesting T/C to discuss pt's potential need for HH at discharge. Pt to discharge home with to transport via POV, R/O HH services. SW will continue to follow. CHI Lemus Addendum: 10/16/16 at 1029 by DOMINIQUE ROD RN updated on pt's discharge pending T/C or orders regarding HH from Ortho provider. CHI Lemus Addendum: 10/16/16 at 1251 by DOMINIQUE FERNÁNDEZ SW received T/C from Ortho provider who stated that SNF is not medically necessary for pt. Ortho also stated that HH is not recommended for pt at this time. Ortho stated that pt's concerns are about getting up stairs when discharged home. Ortho stated that pt can return home and follow-up with outpt PT as scheduled. Ortho requested SW to discuss options for transferring pt into home at time of discharge. SW will discuss wheelchair van transport options with pt and family. CHI Lemus Addendum: 10/16/16 at 1512 by DOMINIQUE FERNÁNDEZ Ortho to hold pt overnight and have PT assess pt's mobility tomorrow. SW discussed this with pt and family and all agreeable. SW will continue to follow. Per Ortho, pt will not discharge today and discharge orders will be cancelled. CHI Lemus
[2016-10-16] MEDS: Sodium Chloride LOK Flush 10 mL Syringe IV SCH ×3 (10:20→23:32)
[2016-10-16] MEDS: Cholestyramine Resin Powder 4 Gm Packet PO SCH (13:06)
[2016-10-16 16:31] VITALS: BP 136/62; PULSE 69; RESP 16; O2SAT 93
--- NOTE | 2016-10-16 16:48 | NUR ---
PAIN/ACTIVITY Patient rated her pain as 5-6/10 this morning. 1/2 tab of Hydrocodone/APAP administered, which was helpful. Patient stated that she still feels groggy/lousy with 1/2 tab. Patient had Vistaril 48 hrs. ago and Gabapentin Q HS. Patient will be medicated with APAP as needed for pain and she is agreeable to this. Tolerating liquids PO and her diet well. Denies nausea. No emesis noted. Denies SOB. Patient was able to get OOB and ambulate in the hallway. Unable to do stairs. Tolerated it fairly. Voiding without any problems. Dressing is CDI. Voiding without any problems. Per PT patient complained of "garbled speech". Patient was assessed. She is alert and oriented X 4. No speech problem noted. BUE/BLE is equal in strength. No change in mobility. Will continue to monitor.
[2016-10-16 19:25] VITALS: BP 139/58; PULSE 83; RESP 17; O2SAT 97
[2016-10-16] MEDS: Diltiazem CD 240 mg ER24 Capsule PO SCH (20:14)
--- NOTE | 2016-10-17 01:09 | NUR ---
Pain Management Patient rating hip pain a 08/29. Only wants to take Tylenol PO for pain management d/t sedation patient experienced a couple days ago from narcotics. Received Tylenol 650 mg PO at HS. Offered to bring Tylenol in to patient [id number] when due, but patient declined. States she would like to sleep through the night and will ask for it when she wakes up and its needed. No c/o breakthrough pain throughout this shift so far.
[2016-10-17] MEDS: 0.9% Sodium Chloride 1,000 ML IV SCH ×2 (01:58→12:44)
[2016-10-17 05:01] VITALS: BP 126/75; PULSE 69; RESP 17; O2SAT 96
[2016-10-17 05:53] LABS: INR 1.38 ratio
[2016-10-17 07:46] VITALS: BP 144/73; PULSE 65
[2016-10-17] MEDS: Senna-Docusate 8.6-50 mg Tablet PO SCH (07:48)
[2016-10-17] MEDS: Sodium Chloride LOK Flush 10 mL Syringe IV SCH (07:49)
[2016-10-17] MEDS: DULoxetine 30 mg DR Capsule PO SCH (07:49)
--- NOTE | 2016-10-17 11:53 | NUR ---
Social Work: Readiness for Discharge D: EMR reviewed. PT evaluated pt this morning and recommended pt to go home with SNF - pt does not qualify for SNF through insurance due to elective surgery. SW discussed this with pt and informed pt that SNF would be private pay. Ortho recommended that pt do HH PT 2x/week. Ortho completed F2F. SW discussed HH with pt and pt agreeable. SW provided choice list. Pt chose [facility]. SW to make referral to [facility] and fax F2F/provide access. SW called [facility] to determine cost for pt to transport home. SW provided pt's address and Kelley from [employer] that the cost will be $65. SW discussed cost with pt and that payment is due at time of transport. Pt agreeable to cost. SW scheduled transport at 1400 today. RN updated. Pt updated. All agreeable to plan. A: Pt for whom HH PT 2x/week has been deemed medically necessary. P: Pt to discharge home via [facility] wheelchair van at 1400 today. Pt notified of private pay cost of $65 due at time of transport. Pt agreeable and stated she will write a check or use her card. Pt's spouse in room and agreeable. SW to fax F2F/provide access to [facility] for HH PT 2x/week. All updated and agreeable to plan. CHI Lemus
--- NOTE | 2016-10-17 12:11 | PCM.PNORTH ---
Subjective Date of Service: Oct 17, 2016 Visit Information: Reason for Visit Intability Of Right Hip Joint Surgery/Surgery Date Post-Op Day # Date of Admission: Oct 13, 2016 at 19:52 Hospital Day # Subjective Patient is status post day #4 right total hip arthroplasty. States that her pain is well-controlled and she did really well with physical therapy yesterday. 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 Postop General: No Shortness of Breath, No Chest Pain, Good Appetite Pain Management: PO, IV Push Objective Exam Objective Patient is alert and oriented 3. Answering questions appropriately. Patient is sitting up in the bed and not in acute distress today. Dressing is clean dry and intact. Calf is soft and nontender. Sensation and pulses intact, patient able to wiggle toes. Vital Signs and I/O Vital Sign - Last Date Time Temp Pulse Resp B/P Pulse Ox O2 Delivery O2 Flow Rate FiO2 10/17/16 07:46 65 144/73 10/17/16 07:45 CPAP/BIPAP 10/17/16 05:08 21 10/17/16 05:01 36.8 17 96 10/13/16 20:20 1.00 Intake and Output 10/16/16 10/16/16 10/17/16 Cumulative From/Thru 15:00 23:00 07:00 10/06/16 14:14 - 10/17/16 05:01 Intake Total 1500 ml 1600 ml 9308 ml Output Total 970 ml 1150 ml 5420 ml Balance 530 ml 450 ml 3888 ml Intake Oral 1500 ml 1600 ml 6830 ml IV Total 2478 ml Output Urine Total 970 ml 1150 ml 5120 ml Estimated Blood Loss 300 ml # Voids 1 1 # Bowel Movements 0 0 0 Lab & Micro Results Laboratory Tests Test 10/17/16 04:47 Prothrombin Time 14.9sec (8.1-12.5) Prothromb Time International Ratio 1.38ratio Microbiology 10/13/16 Gram Stain - Final, Resulted 10/13/16 Culture & Sensitivity - Preliminary, Resulted 10/13/16 Anaerobic Culture - Preliminary, Resulted Result Diagram: 10/15/16 0506 10/15/16 0506 SURGICAL WOUND : Incision General Appearance: No Direct Observation Activity: Activity per PT Assessment & Plan Impression Status post day #4 right total hip arthroplasty. Patient's pain is well controlled, diet is normal, doing well. Patient did a little S with physical therapy today than the previous day. Current recommendation would be to continue physical therapy at home. Patient has had worsening and unsteady gait , poor balance, inability to navigate stairs without requiring assistance of 2 people for stairs. Problems: Plan Weightbearing: Weightbearing as tolerated with walker, patient has demonstrated need for additional assistance due to instability and unsteady gait. We will order home health physical therapy 2 times a week to work on gait stability of home. DVT prophylaxis: Continue home dosing of Coumadin Continue home health Physical therapy for transfers, progressive ambulation, therapeutic exercise Use regular pillow between knees when in bed Wear your knee high compression stockings Discharge plan: Discharge home today, with home health physical therapy 2 times per week. Follow-up plan: In 2 weeks at [facility] with CLINT for wound check and at [address] Marrufo with x-rays VTE Prophylaxis: Theraputic Anticoag with Warfarin, SCDs Resuscitation Status: CPR: Attempt Resuscitation Jasmeet Poole PA-C Oct 17, 2016 12:11
--- NOTE | 2016-10-17 12:24 | PCM.DC.ORT ---
Discharge Summary Date of Service: Oct 17, 2016 Date of Hospital Admission: Oct 13, 2016 at 19:52 Date of Surgery: Oct 13, 2016 Date of Discharge: Oct 17, 2016 Reason for Hospitalization: Right hip recurrent dislocation, need for revision. Status post total hip replacement. Procedures Performed: Right total hip arthroplasty revision Hospital Course: Patient presented to [facility] surgical suite for the procedure of right total hip arthroplasty revision by Dr Nomi Marrufo on 10/13/2016. Patient was prepped for surgery and the procedure was performed successfully, patient was discharged to PACU under stable condition, tolerated the procedure well. Once stabilized in PACU and pain well controlled, patient was admitted to the hospital floor for observation, pain control, and progression with physical therapy. The first 1-2 days the patient was able to resume a regular diet, void on their own, not having any problems with nausea or vomiting. The patient did not have any adverse falls, reactions, or events were all in the hospital. The patient began working with physical therapy on day one then progressed quite well with reasonable pain control. The patient ambulated well on day #3 but was unable to perform required step training and had some gait instability on day #3 and was decided for safety issues and lack of gait stability to remain in the hospital for 1 more day. On day 4 the patient was able to ambulate safely on their own, and pain was controlled sufficiently to be discharged to home but with home health physical therapy for residual gait training to ensure stability and limited risk for falls. We will utilize her regular warfarin for DVT prophylaxis. The patient was discharged to home with home health 2 times a week, under stable condition with plan to follow-up with patient at 2 weeks for a postoperative appointment. Diagnosis at Time of Discharge Status post right total hip arthroplasty revision. Problems: Orthopedic Follow up Plan: In Two Weeks in my clinic Discharge Instructions: Weightbearing: Weightbearing as tolerated with walker, patient has demonstrated need for additional assistance due to instability and unsteady gait. We will order home health physical therapy 2 times a week to work on gait stability of home. DVT prophylaxis: Continue home dosing of Coumadin Continue home health Physical therapy for transfers, progressive ambulation, therapeutic exercise Use regular pillow between knees when in bed Wear your knee high compression stockings Discharge plan: Discharge home today, with home health physical therapy 2 times per week. Follow-up plan: In 2 weeks at [facility] with PA for wound check and at [address] Marrufo with x-rays ([Hydrocodone/Acetaminophen]) 1 TABLET TABLET 1-2 TABLET PO Q4H PRN PRN For Moderate Pain Cholestyramine (Cholestyramine Packet) 4 Gm Packet 4 GM PO DAILY Diltiazem ER (Cardizem CD) 240 Mg Cap.er.24h 240 MG PO DAILY Duloxetine (Duloxetine) 30 Mg Capsule.dr 60 MG PO DAILY Gabapentin (Gabapentin) 300 Mg Capsule 300-600 MG PO HS Hydrochlorothiazide (Hydrochlorothiazide) 25 Mg Tablet 25 MG PO DAILY Hydroxyzine Pamoate (HydrOXYzine Pamoate) 25 Mg Capsule 25 MG PO Q4H PRN PRN For Spasm and/or Restlessness Levothyroxine (Synthroid) 75 Mcg Tablet 75 MCG PO DAILY Losartan Potassium (Losartan Potassium) 25 Mg Tablet 25 MG PO DAILY Multivitamin (Multi Vitamin Daily) 1 Each Tablet 1 EACH PO DAILY Rosuvastatin Calcium (Crestor) 40 Mg Tablet 40 MG PO DAILY Warfarin Sodium (Coumadin) 5 Mg Tablet 5 MG PO 4xweekly Warfarin Sodium (Warfarin Sodium) 5 Mg Tablet 2.5 MG PO mon,wed,wed Jasmeet Poole PA-C Oct 17, 2016 12:24
[2016-10-17] MEDS: Cholestyramine Resin Powder 4 Gm Packet PO SCH (12:47)
--- NOTE | 2016-10-17 13:37 | NUR ---
SW made referral to [facility] per pt's choice, faxed F2/facesheet/discharge instructions, and provided access. T/C to Ana at [facility] to confirm receipt of information - left voicemail requesting confirmation of receipt of information. CHI Lemus
--- NOTE | 2016-10-17 14:13 | NUR ---
[facility] picked pt up at 2PM. Pt able to transfer herself slowly from bed to wheelchair. Tolerated OK. at bedside and took all belongings to care with him. Discharge instructions reviewed. No further questions at this time. Addendum: 10/17/16 at 1515 by QUINN BLACK RN Dressing was changed prior to pt departing per Surgeon CLINT requested. I left what appears to be Silvadene dressing on and applied Island dressing on top. Sutures were intact and no drainage or redness noted. Pt instructed to keep it on until she follow up for her wound check on 10/28.
--- NOTE | 2016-10-17 14:15 | NUR ---
Social Work: Discharge D: EMR reviewed. Pt is on day 4 of hospitalization. MOUSTAPHA confirmed private pay wheelchair transport through [facility] for transport at 1400 today. Pt and RN updated and agreeable. Pt updated on $65 charge for transport due at time of transfer. Pt agreeable. MOUSTAPHA made referral to [facility] for PT 2x/week. Pt wanted to add [employer] LOC[employer]NAGER for bathing - MOUSTAPHA discussed this with Ana from [facility] who confirmed she will have this added to pt's HH plan by pt's PCP as pt was leaving for discharge and requested this last minute. Ana confirmed adding [employer]PORT LOCATION MANAGER to pt's plan will not be an issue. Pt to open with PT on Wednesday and [employer] LOC[employer]NAGER in 2-3 days. A: Pt for whom HH has been ordered by and coordinated by MOUSTAPHA P: Pt discharged home via [facility] at 1400 today. Pt to open with [facility] PT on Wednesday and [employer] LOCATION MANAGER in 2-3 days. MOUSTAPHA confirmed with Ana from [facility] they [facility] received faxed F2F and all necessary discharge documents. CHI Lemus
== END 2016-10-17 14:00 | disposition home health service (06) | DRG 468 ==
LOC: SAS 11:47 → OSC 19:52
PROVIDERS: ADMIT Orthopaedic Surgery; ATTEND Orthopaedic Surgery
PROC: 0SP909Z Removal of Liner from Right Hip Joint, Open Approach (ICD-10-PCS; 2016-10-13)
PROC: 0SUA09Z Supplement Right Hip Joint, Acetabular Surface with Liner, Open Approach (ICD-10-PCS; 2016-10-13)
PROC: 0SP90JZ Removal of Synthetic Substitute from Right Hip Joint, Open Approach (ICD-10-PCS; 2016-10-13)
PROC: 0SR90JA Replacement of Right Hip Joint with Synthetic Substitute, Uncemented, Open Approach (ICD-10-PCS; principal; 2016-10-13 14:00)
DX: T84.020A Dislocation of internal right hip prosthesis, initial encounter (principal); I10 Essential (primary) hypertension; Z79.01 Long term (current) use of anticoagulants; E78.5 Hyperlipidemia, unspecified; E03.9 Hypothyroidism, unspecified; I25.10 Atherosclerotic heart disease of native coronary artery without angina pectoris; I48.91 Unspecified atrial fibrillation; G47.33 Obstructive sleep apnea (adult) (pediatric); Z87.891 Personal history of nicotine dependence